=== PATIENT | female | born 1930 | race Caucasian/White ===

== ENCOUNTER 2016-12-13 18:24 | Inpatient (IN) | payer OTHER, MEDICARE ==
[~2016-12-13] VITALS: Ht 149.9 cm; Wt 49.0 kg
[~2016-12-13 18:24] MED LIST: CITALOPRAM HBR20 MG PO; LISINOPRIL20 M1 PO; PANTOPRAZOLE SO40 M1 PO; SIMVASTATIN40 M1 PO
--- NOTE | 2016-12-13 18:35 | NUR ---
PT TO ED C/O ABD PAIN AND LOW BACK PAIN SINCE YESTERDAY. C/O VOMITING YESTERDAY, DENIES DIARRHEA. DENIES S/S.
--- NOTE | 2016-12-13 18:46 | NUR ---
PT REPORTS HAVING A NORMAL BM TODAY, STATES VOMITTED TODAY A SMALL AMOUT. REPORTS HASNT BEEN EATING THE PAST 2 DAYS
--- NOTE | 2016-12-13 18:53 | NUR ---
XIMENA REKHA IN TO EVAL.
--- NOTE | 2016-12-13 18:58 | ED GI/GU/ABDOMINAL COMPLAINT ---
History of Present Illness General Chief Complaint: Abdominal Pain/Flank Pain Stated Complaint: ABDOMINAL PAIN,LOW BACK PAIN Source: patient, family Exam Limitations: dementia, poor historian Vital Signs & Intake/Output Vital Signs & Intake/Output Vital Signs Date Time Temp Pulse Resp B/P B/P Pulse O2 O2 Flow FiO2 Mean Ox Delivery Rate 12/131 98.2 69 20 160/70 95 Room Air 12/13 2305 73 20 193/83 97 Room Air 12/13 2305 90 20 220/94 96 Room Air 12/13 2304 90 20 220/94 12/13 2237 82 20 175/82 12/13 2226 84 20 175/82 96 Room Air 12/13 2211 88 20 214/92 12/13 2200 98.1 88 20 214/92 98 Room Air 12/13 2132 98.4 76 20 204/72 97 Room Air 12/13 1834 98.4 94 20 194/80 97 Room Air ED Intake and Output 12/14 0000 12/13 1200 Intake Total 1300 Output Total 200 Balance 1100 Intake, IV 1000 Intake, Other 300 Output, 200 Gastric Drainage Patient 110 lb Weight Weight Estimated Measurement Method Allergies Coded Allergies: No Known Allergies (12/13/16) Reconcile Medications Aspirin (Ecotrin*) 81 MG TABLET.DR 162 MG PO DAILY HEART/BLOOD (Reported) Cinnamon Bark (Cinnamon) 500 MG CAPSULE 1,000 MG PO DAILY SUPPLEMENT ( Reported) Citalopram Hydrobromide (Citalopram HBr) 20 MG TABLET 0.5 TAB PO DAILY ANXIETY (Reported) Donepezil HCl 10 MG TABLET 1 TAB PO DAILY MEMORY (Reported) Famotidine 40 MG TABLET 1 TAB PO AD GI (Reported) Ibandronate Sodium (Boniva) 150 MG TABLET 1 TAB PO Q30D OSTEOPOROSIS ( Reported) on the same date with a full glass of water at least 30 minutes before first food or drink of the day; remain in an upright posi Lisinopril 20 MG TABLET 1 TAB PO DAILY HTN (Reported) Multivitamin (Multi-Day Vitamins) 1 EACH TABLET 1 TAB PO DAILY SUPPLEMENT ( Reported) Pantoprazole Sodium 40 MG TABLET.DR 1 TAB PO DAILY GERD (Reported) Simvastatin (Simvastatin*) 40 MG TABLET 1 TAB PO QPM CHOL (Reported) Triage Note: PT TO ED C/O ABD PAIN AND LOW BACK PAIN SINCE YESTERDAY. C/O VOMITING YESTERDAY, DENIES DIARRHEA. DENIES S/S. Triage Nurses Notes Reviewed? yes ? N Is pt currently ? No Onset: Gradual Duration: day(s): Timing: recent history Location: left lower quadrant, periumbilical, right lower quadrant HPI: 86-year-old female with hx of HTN presents emergency department complaining of lower back pain bilaterally, abdominal pain, nausea, vomiting 3 or 4 days. Patient is poor historian due to possible baseline dementia, HPI partially obtained from . Unknown if patient had abdominal pain similar to her current pain in the past. She describes abdominal pain as lower abdomen aching intermittently. It is unknown if patient has had prior abdominal surgery. Per the patient's the patient does not chronically complain of back pain, states the patient was complaining of periumbilical abdominal pain yesterday. The patient vomited 2-3 times yesterday unknown of blood present, she vomiting once today. Last bowel movement was this morning and normal. The patient denies diarrhea, constipation, fevers, chills. (SYD DA SILVA PA-C) Past History Travel History Traveled to [place] past 21 day No Medical History Any Pertinent Medical History? see below for history Neurological: NONE EENT: EKUK Cardiovascular: hypertension, hyperlipidemia Respiratory: NONE Gastrointestinal: NONE Hepatic: NONE Renal: NONE Musculoskeletal: NONE Psychiatric: NONE Endocrine: NONE Surgical History Surgical History: hysterectomy Psychosocial History Who do you live with Spouse Services at Home None What is your primary language Ivorian Tobacco Use: Never used ETOH Use: denies use Illicit Drug Use: denies illicit drug use Family History Hx Contributory? No (SYD DA SILVA PA-C) Review of Systems Review of Systems Constitutional: Reports: no symptoms. EENTM: Reports: no symptoms. Respiratory: Reports: no symptoms. Cardiovascular: Reports: no symptoms. GI: Reports: see HPI. Genitourinary: Reports: no symptoms. Musculoskeletal: Reports: see HPI. Skin: Reports: no symptoms. Neurological/Psychological: Reports: no symptoms. Hematologic/Endocrine: Reports: no symptoms. Immunologic/Allergic: Reports: no symptoms. All Other Systems: Reviewed and Negative (SYD DA SILVA PA-C) Physical Exam Physical Exam General Appearance: well developed/nourished, no apparent distress, alert, awake Head: atraumatic, normal appearance Eyes: Bilateral: normal appearance, EOMI. Ears, Nose, Throat, Mouth: hearing grossly normal Neck: normal inspection, supple, full range of motion Respiratory: normal breath sounds, no respiratory distress, lungs clear Cardiovascular: regular rate/rhythm Gastrointestinal: normal bowel sounds, soft, tenderness RLQ and LLQ, no rebound, no gaurding, mild distention Back: normal inspection, normal range of motion, no CVA tenderness Extremities: normal range of motion Neurologic/Psych: awake, alert, oriented x 3, poor recent memory Skin: intact, normal color Core Measures ACS in differential dx? No Severe Sepsis Present: No Septic Shock Present: No (REKHA CARRILLO,SYD VILLALOBOS) Progress Differential Diagnosis: appendicitis, biliary colic, bowel obstruction, cholecystitis, diverticulitis, ischemic bowel, inflamm bowel dis, kidney stone, SBO, UTI/pyelo Plan of Care: Orders Procedure Date/time Status Nothing by Mouth 12/14 B Active CBC WITHOUT DIFFERENTIAL 12/14 06 Active BASIC METABOLIC PANEL 12/14 06 Active BASIC ELECTROLYTES PLUS BUN&CR 12/14 0600 Active Vital Signs 12/14 0045 Complete Teach/Educate 12/14 004 Active Pain Treatment and Response 12/14 44 Active Nutritional Intake, Monitor 12/14 44 Active Isolation 12/14 44 Active Intake & Output 12/14 44 Complete Patient Care Conference 12/14 004 Active Activity/Ambulation 12/14 0045 Complete Pathway - chart 12/14 2231 Active Admit to inpatient 12/13 223 Active Patient Data 12/13 220 Active Saline Lock 12/14 2131 Active ED Holding Orders 12/14 2131 Active Admit to inpatient 12/14 2131 Active Vital Signs 12/13 213 Complete Code Status 12/13 213 Active NGT 12/13 2124 Complete Intake & Output 12/13 1921 Active LIPASE 12/13 1855 Complete COMPREHENSIVE METABOLIC PANEL 12/13 1855 Complete CBC WITHOUT DIFFERENTIAL 12/13 185 Complete EKG 12/13 1825 Active TRC EVALUATION (GEN) 12/13 UNK Active VTE Mechanical Prophylaxis 12/13 UNK Active Vital Signs 12/13 UNK Active NGT 12/13 UNK Active Intake & Output 12/13 UNK Complete Activity/Ambulation 12/13 UNK Active Current Medications Sig/Amie Start time Last Medication Dose Stop Time Status Admin Atorvastatin Calcium 20 MG 1700 12/14 1700 AC (Lipitor) Aspirin 81 MG DAILY 12/14 1000 AC (Aspirin) Citalopram 10 MG DAILY 12/14 1000 AC Hydrobromide (Celexa) Donepezil HCl 10 MG DAILY 12/14 1000 AC (Aricept) Famotidine 40 MG DAILY 12/14 1000 AC (Pepcid) Lisinopril 20 MG DAILY 12/14 1000 AC (Prinivil) Multivitamins 1 TAB DAILY 12/14 1000 AC (Theragran Vitamins) Omeprazole 40 MG DAILY AC 12/14 0700 AC (Prilosec) Heparin Sodium 5,000 UNIT Q8 12/14 0600 AC (Porcine) Ondansetron HCl 4 MG Q6P PRN 12/13 2300 AC (Zofran) Acetaminophen 1,000 MG Q6P PRN 12/13 223 AC (Ofirmev) Dextrose/Sodium 1,000 ML .Q10H 12/13 2230 AC 12/13 Chloride 2243 (D5W-1/2 Normal Saline 1000ML) Morphine Sulfate 2 MG Q2P PRN 12/13 2229 AC (Morphine) Morphine Sulfate 4 MG Q2P PRN 12/13 2230 AC (Morphine) Promethazine HCl 12.5 MG Q6P PRN 12/13 223 AC (Phenergen) 12/20 2228 Laboratory Tests 12/13/168: Anion Gap 13, Estimated GFR > 60, BUN/Creatinine Ratio 37.5 H, Glucose 161 H, Calcium 10.4 H, Total Bilirubin 0.6, AST 33, ALT 38, Alkaline Phosphatase 73, Total Protein 6.9, Albumin 4.4, Globulin 2.5, Albumin/Globulin Ratio 1.8, Lipase 49, CBC w Diff MAN DIFF ORDERED, RBC 4.26, MCV 95.2, MCH 31.3 H, RDW 13.8, MPV 8.0, Gran % 89.2 H, Lymphocytes % 3.6 L, Monocytes % 6.8, Eosinophils % 0.4, Basophils % 0 L, Absolute Granulocytes 16.9 H, Absolute Lymphocytes 0.7 L, Absolute Monocytes 1.3 H, Absolute Eosinophils 0.1, Absolute Basophils 0, Platelet Estimate ADEQUATE, Normochromic RBCs VERIFIED, Poikilocytosis 1+, Elliptocytes 1+, PUBS MCHC 32.8 L 9:00 - spoke with Dr. Rodgers regarding patient's small bowel obstruction. He recommends nasogastric tube now and surgical PA evaluation of patient. 9:15 - surgical PA Black informed of patient and diagnosis, present to evaluate patient at bedside. 200 cc bile removed with NG tube Per Black Carney surgical PA patient will be admitted to surgical floor for monitoring of her SBO with possible surgery if no resolution of symptoms. Premature discharge would be medically unsafe. Patient with HTN in ED, given labetalol and enalipril IV. The patient reports no pain on re-exam, she is comfortable lying in bed. (REKHA CARRILLO,SYD VILLALOBOS) Diagnostic Imaging: Viewed by Me: CT Scan. Discussed w/RAD: CT Scan. Radiology Impression: PATIENT: EDWARD LARA PRESENT AGE: 86 PATIENT ACCOUNT NO: [id number] : 30 LOCATION: [facility] ([facility] ORDERING PHYSICIAN: SYD DA SILVA PA-C SERVICE DATE: 12/13/16 EXAM TYPE: CAT - CT ABD & PELVIS W IV CONTRAST EXAMINATION: CT ABDOMEN AND PELVIS with CONTRAST CLINICAL INFORMATION: Left lower quadrant, right lower quadrant abdominal pain. Nausea and vomiting. COMPARISON: None TECHNIQUE: Helical CT scan of abdomen and pelvis. IV contrast: 95 mL Optiray 320 Oral contrast: None Reconstruction: Coronal and sagittal reformatted images performed at CT scanner by the technologist. FINDINGS: LUNG BASES: The visualized lung bases are unremarkable. LIVER, GALLBLADDER, AND BILIARY TREE: The liver is normal in size, shape, and attenuation. No focal hepatic lesion or biliary ductal dilatation is present. The gallbladder is unremarkable with no evidence of radiopaque gallstones, gallbladder wall thickening, or obvious pericholecystic inflammatory changes. PANCREAS: No acute change of the pancreas. No mass. No pancreatic duct dilatation. SPLEEN: Spleen normal in size and contour. No focal lesion. ADRENAL GLANDS: Adrenal glands are normal in size. No focal mass. KIDNEYS AND URETERS: The kidneys are normal in size, shape, and attenuation. No hydronephrosis, hydroureter, or calculi seen. No perinephric stranding. BLADDER: Unremarkable. GASTROINTESTINAL TRACT: High-grade small bowel obstruction. Transition point in the low central pelvis. The distal terminal ileum is decompressed. The large bowel is decompressed. Moderate amount of stool in the colon. No bowel wall thickening or edema. There is however small volume of fluid in the mesentery. No free air. Small hiatal hernia. The appendix is not seen. MESENTERY: Small volume of free fluid in the mesentery related to the small bowel obstruction. No free air or abscess. ABDOMINAL WALL: No significant hernia is appreciated. LYMPH NODES: Normal. VASCULAR: Vascular wall calcifications of aorta and iliac vessels without aneurysm. PELVIC VISCERA: Uterus is absent. No adnexal abnormality. OSSEOUS STRUCTURES: Degenerative spondylosis with multilevel disc height narrowing. Vacuum disc phenomenon L2-L3, L4-L5. Grade 1 anterolisthesis of L4 on L5 due to facet joint arthrosis. No spondylolysis. Degenerative joint narrowing of joints. There is a sclerotic bone island in the right sacral ala. IMPRESSION: 1. High-grade small bowel obstruction with transition point low in pelvis. 2. Status post hysterectomy. DICTATED BY: ELIZABETH BAKER MD DATE/TIME DICTATED:2027 MARINE DIVER:LATOYA DATE/TIME TRANSCRIBED:12/13/162027 CONFIDENTIAL, DO NOT COPY WITHOUT APPROPRIATE AUTHORIZATION. <Electronically signed in Other Vendor System> SIGNED BY: ELIZABETH BAKER MD 12/13/162043 Initial ED EKG: sinus rhythm at 70bpm, normal axis, no ST segment elevation or depression Prior EKG: unchanged (03/27/09) (REKHA CARRILLO,SYD VILLALOBOS) Departure Departure Time of Disposition: 2128 Disposition: STILL A PATIENT Condition: Stable Clinical Impression Primary Impression: Small bowel obstruction Secondary Impressions: Leukocytosis, Nausea & vomiting Referrals: KILPATRICK NARGIS TELLO (PCP/Family) Departure Forms: Customer Survey General Discharge Information Admission Note Spoke With: TAMIR TELLO,ROBERT Tiwari Documentation of Exam: Documentation of any treatments & extenuating circumstances including Concerns Regarding Discharge (functional status, medication knowledge or non-compliance, living conditions, etc.) that warrant an admission rather than observation: [ high grade small bowel obstruction, requiring IVF replacement, pain management, surgical consult/evaluation, repeat labs, premature discharge would be medically unsafe] (SYD DA SILVA PA-C) PA/KETTLE COOK Co-Sign Statement Statement: ED Attending supervision documentation- [] I saw and evaluated the patient. I have also reviewed all the pertinent lab results and diagnostic results. I agree with the findings and the plan of care as documented in the PA's/KETTLE COOK's documentation. [x] I have reviewed the ED Record and agree with the PA's/KETTLE COOK's documentation. [] Additions or exceptions (if any) to the PAs/KETTLE COOK's note and plan are summarized below: [] (MARIANO TELLO,BOB Esqueda)
[2016-12-13] MEDS ORDERED: FAMOTIDINE40 M1 PO (19:15)
[2016-12-13] MEDS ORDERED: BONIVA150 M1 PO (19:16)
[2016-12-13] MEDS ORDERED: DONEPEZIL HCL10 M1 PO (19:16)
[2016-12-13] MEDS ORDERED: ASPIRIN EC81 M1 PO (19:17)
[2016-12-13] MEDS ORDERED: CINNAMON500 M1 PO (19:17)
[2016-12-13] MEDS ORDERED: MULTI-DAY VITA1 EACH PO (19:17)
--- NOTE | 2016-12-13 19:17 | NUR ---
BLOOD DRAWN AND SENT TO LAB (BLUE,SST,PINK,LAV,MEI)
[2016-12-13 19:38] LABS: ABSOLUTE BASOPHIL COUNT 0 /CUMM (0.0-0.2); ABSOLUTE EOSINOPHIL COUNT 0.1 /CUMM (0.0-0.7); ABSOLUTE GRANULOCYTE CT 16.9 /CUMM (1.4-6.5); ABSOLUTE LYMPH COUNT 0.7 /CUMM (1.2-3.4); ABSOLUTE MONOCYTE COUNT 1.3 /CUMM (0.10-0.60); BASOPHIL % 0 % (0.0-2.0); EOSINOPHIL % 0.4 % (0-5); GRANULOCYTE % 89.2 % (42.2-75.2); HEMATOCRIT 40.6 % (37-47); MEAN CORPUSCULAR HGB 31.3 PG (27.0-31.0); MEAN CORPUSCULAR HGB CONC 32.8 G/DL (33.0-37.0); MEAN CORPUSCULAR VOLUME 95.2 FL (81.0-99.0); PLATELET COUNT 337 /CUMM (130-400); RBC DISTRIBUTION WIDTH 13.8 % (11.5-14.5); RED BLOOD CELL CT 4.26 /CUMM (4.20-5.40)
--- NOTE | 2016-12-13 20:00 | NUR ---
PT TO CT
--- NOTE | 2016-12-13 20:20 | NUR ---
PT RETURNED FROM CT
--- NOTE | 2016-12-13 20:44 | CT SCAN REPORT ---
EXAMINATION: CT ABDOMEN AND PELVIS with CONTRAST CLINICAL INFORMATION: Left lower quadrant, right lower quadrant abdominal pain. Nausea and vomiting. COMPARISON: None TECHNIQUE: Helical CT scan of abdomen and pelvis. IV contrast: 95 mL Optiray 320 Oral contrast: None Reconstruction: Coronal and sagittal reformatted images performed at CT scanner by the technologist. FINDINGS: LUNG BASES: The visualized lung bases are unremarkable. LIVER, GALLBLADDER, AND BILIARY TREE: The liver is normal in size, shape, and attenuation. No focal hepatic lesion or biliary ductal dilatation is present. The gallbladder is unremarkable with no evidence of radiopaque gallstones, gallbladder wall thickening, or obvious pericholecystic inflammatory changes. PANCREAS: No acute change of the pancreas. No mass. No pancreatic duct dilatation. SPLEEN: Spleen normal in size and contour. No focal lesion. ADRENAL GLANDS: Adrenal glands are normal in size. No focal mass. KIDNEYS AND URETERS: The kidneys are normal in size, shape, and attenuation. No hydronephrosis, hydroureter, or calculi seen. No perinephric stranding. BLADDER: Unremarkable. GASTROINTESTINAL TRACT: High-grade small bowel obstruction. Transition point in the low central pelvis. The distal terminal ileum is decompressed. The large bowel is decompressed. Moderate amount of stool in the colon. No bowel wall thickening or edema. There is however small volume of fluid in the mesentery. No free air. Small hiatal hernia. The appendix is not seen. MESENTERY: Small volume of free fluid in the mesentery related to the small bowel obstruction. No free air or abscess. ABDOMINAL WALL: No significant hernia is appreciated. LYMPH NODES: Normal. VASCULAR: Vascular wall calcifications of aorta and iliac vessels without aneurysm. PELVIC VISCERA: Uterus is absent. No adnexal abnormality. OSSEOUS STRUCTURES: Degenerative spondylosis with multilevel disc height narrowing. Vacuum disc phenomenon L2-L3, L4-L5. Grade 1 anterolisthesis of L4 on L5 due to facet joint arthrosis. No spondylolysis. Degenerative joint narrowing of joints. There is a sclerotic bone island in the right sacral ala. IMPRESSION: 1. High-grade small bowel obstruction with transition point low in pelvis. 2. Status post hysterectomy.
--- NOTE | 2016-12-13 21:15 | NUR ---
NG TUBE PALCED INTO LEFT NARE TAPED AT 54.
--- NOTE | 2016-12-13 21:20 | NUR ---
200 CC BILE REMOVED WITH NGT PLACEMENT
--- NOTE | 2016-12-13 22:10 | NUR ---
PT GIVEN 10MG LABETALOL IV FOR INCREASED BP
--- NOTE | 2016-12-13 22:46 | History & Physical ---
GABRIELLE MORELOS PA-C 12/13/16 2233: General Information and HPI MD Statement: I have seen and personally examined EDWARD LARA and documented this H&P. The patient is a 86 year old F who presented with a patient stated chief complaint of [abdominal pain, nausea and vomiting]. Source of Information: patient, family Exam Limitations: dementia History of Present Illness: 86-year-old female with mild dementia, her is aiding in history, presents to the emergency department this evening with complaints of abdominal pain nausea and vomiting. Her abdominal pain started 2 days ago, yesterday she had mildly worsening abdominal pain which is diffuse and nonradiating, she had several episodes, approximately 4 per the , of vomiting. She then continued with abdominal pain today which is now radiating into the back, there is no vomiting today. Patient states that she had a small bowel movement earlier this morning. She has had no appetite. She denies any fever or flulike illness. She has a history of dementia, she has a history of abdominal surgery consistent with section many years ago, she denies any abdominal surgery or previous small bowel obstructions. She is not nauseous at this time. She does not recall passing any gas since her last bowel movement. Allergies/Medications Allergies: Coded Allergies: No Known Allergies (12/13/16) Home Med list Aspirin (Ecotrin*) 81 MG TABLET.DR 162 MG PO DAILY HEART/BLOOD (Reported) Cinnamon Bark (Cinnamon) 500 MG CAPSULE 1,000 MG PO DAILY SUPPLEMENT ( Reported) Citalopram Hydrobromide (Citalopram HBr) 20 MG TABLET 0.5 TAB PO DAILY ANXIETY (Reported) Donepezil HCl 10 MG TABLET 1 TAB PO DAILY MEMORY (Reported) Famotidine 40 MG TABLET 1 TAB PO AD GI (Reported) Ibandronate Sodium (Boniva) 150 MG TABLET 1 TAB PO Q30D OSTEOPOROSIS ( Reported) on the same date with a full glass of water at least 30 minutes before first food or drink of the day; remain in an upright posi Lisinopril 20 MG TABLET 1 TAB PO DAILY HTN (Reported) Multivitamin (Multi-Day Vitamins) 1 EACH TABLET 1 TAB PO DAILY SUPPLEMENT ( Reported) Pantoprazole Sodium 40 MG TABLET.DR 1 TAB PO DAILY GERD (Reported) Simvastatin (Simvastatin*) 40 MG TABLET 1 TAB PO QPM CHOL (Reported) Past History Travel History Traveled to [place] past 21 day No Medical History Neurological: dementia EENT: [place] Cardiovascular: hypertension, hyperlipidemia Respiratory: NONE Gastrointestinal: GERD Hepatic: NONE Renal: NONE Musculoskeletal: osteoporosis Psychiatric: NONE Endocrine: NONE Surgical History Surgical History: hysterectomy Past Family/Social History Family History Relations & Conditions if any Relation not specified for: *No pertinent family history Psychosocial History Services at Home: None ETOH Use: denies use Illicit Drug Use: denies illicit drug use Review of Systems Review of Systems Constitutional: Reports: see HPI. Denies: chills, diaphoresis, fever, malaise. EENTM: Reports: no symptoms. Cardiovascular: Reports: no symptoms. Respiratory: Reports: no symptoms. GI: Reports: see HPI. Genitourinary: Reports: no symptoms. Musculoskeletal: Reports: no symptoms. Skin: Reports: no symptoms. Neurological/Psychological: Reports: no symptoms. Hematologic/Endocrine: Reports: no symptoms. Immunologic/Allergic: Reports: no symptoms. Exam & Diagnostic Data Last 24 Hrs of Vital Signs/I&O Vital Signs Date Time Temp Pulse Resp B/P B/P Pulse O2 O2 Flow FiO2 Mean Ox Delivery Rate 12/13 2226 84 20 175/82 96 Room Air 12/13 2211 88 20 214/92 12/13 2200 98.1 88 20 214/92 98 Room Air 12/13 2132 98.4 76 20 204/72 97 Room Air 12/13 1834 98.4 94 20 194/80 97 Room Air Physical Exam General Appearance Alert, Oriented X3, Cooperative, No Acute Distress Skin No Rashes Skin Temp/Moisture Exam: Warm/Dry Sepsis Skin Exam (color): Normal for Ethnicity HEENT Atraumatic, PERRLA, EOMI, Mucous Membr. moist/pink Neck Supple, No JVD, No thryomegaly Cardiovascular Regular Rate, Normal S1, Normal S2 Lungs Clear to Auscultation, Normal Air Movement Abdomen SOFTLY DISTENDED, MODERATE DISTENTION. HYPERACTIVE BOWEL SOUNDS. NON TENDER. TRANSVERSE LOWER PELVIC SURGICAL SCAR Neurological Normal Speech, Strength at 5/5 X4 Ext, Normal Tone, Sensation Intact, Cranial Nerves 3-12 NL Extremities No Clubbing, No Cyanosis, No Edema, Normal Pulses, No Tenderness/ Swelling Last 24 Hrs of Labs/Get: Laboratory Tests 12/13/16 1908: Anion Gap 13, Estimated GFR > 60, BUN/Creatinine Ratio 37.5 H, Glucose 161 H, Calcium 10.4 H, Total Bilirubin 0.6, AST 33, ALT 38, Alkaline Phosphatase 73, Total Protein 6.9, Albumin 4.4, Globulin 2.5, Albumin/Globulin Ratio 1.8, Lipase 49, CBC w Diff MAN DIFF ORDERED, RBC 4.26, MCV 95.2, MCH 31.3 H, RDW 13.8, MPV 8.0, Gran % 89.2 H, Lymphocytes % 3.6 L, Monocytes % 6.8, Eosinophils % 0.4, Basophils % 0 L, Absolute Granulocytes 16.9 H, Absolute Lymphocytes 0.7 L, Absolute Monocytes 1.3 H, Absolute Eosinophils 0.1, Absolute Basophils 0, Platelet Estimate ADEQUATE, Normochromic RBCs VERIFIED, Poikilocytosis 1+, Elliptocytes 1+, PUBS MCHC 32.8 L Diagnostic Data EKG Results 70 BPM, NSR, NO ST/T WAVE CHANGES Other Results PATIENT: EDWARD LARA PRESENT AGE: 86 PATIENT ACCOUNT NO: [id number] : 30 LOCATION: [facility] ORDERING PHYSICIAN: SYD DA SILVA PA-C SERVICE DATE: 12/13/16 EXAM TYPE: CAT - CT ABD & PELVIS W IV CONTRAST EXAMINATION: CT ABDOMEN AND PELVIS with CONTRAST CLINICAL INFORMATION: Left lower quadrant, right lower quadrant abdominal pain. Nausea and vomiting. COMPARISON: None TECHNIQUE: Helical CT scan of abdomen and pelvis. IV contrast: 95 mL Optiray 320 Oral contrast: None Reconstruction: Coronal and sagittal reformatted images performed at CT scanner by the technologist. FINDINGS: LUNG BASES: The visualized lung bases are unremarkable. LIVER, GALLBLADDER, AND BILIARY TREE: The liver is normal in size, shape, and attenuation. No focal hepatic lesion or biliary ductal dilatation is present. The gallbladder is unremarkable with no evidence of radiopaque gallstones, gallbladder wall thickening, or obvious pericholecystic inflammatory changes. PANCREAS: No acute change of the pancreas. No mass. No pancreatic duct dilatation. SPLEEN: Spleen normal in size and contour. No focal lesion. ADRENAL GLANDS: Adrenal glands are normal in size. No focal mass. KIDNEYS AND URETERS: The kidneys are normal in size, shape, and attenuation. No hydronephrosis, hydroureter, or calculi seen. No perinephric stranding. BLADDER: Unremarkable. GASTROINTESTINAL TRACT: High-grade small bowel obstruction. Transition point in the low central pelvis. The distal terminal ileum is decompressed. The large bowel is decompressed. Moderate amount of stool in the colon. No bowel wall thickening or edema. There is however small volume of fluid in the mesentery. No free air. Small hiatal hernia. The appendix is not seen. MESENTERY: Small volume of free fluid in the mesentery related to the small bowel obstruction. No free air or abscess. ABDOMINAL WALL: No significant hernia is appreciated. LYMPH NODES: Normal. VASCULAR: Vascular wall calcifications of aorta and iliac vessels without aneurysm. PELVIC VISCERA: Uterus is absent. No adnexal abnormality. OSSEOUS STRUCTURES: Degenerative spondylosis with multilevel disc height narrowing. Vacuum disc phenomenon L2-L3, L4-L5. Grade 1 anterolisthesis of L4 on L5 due to facet joint arthrosis. No spondylolysis. Degenerative joint narrowing of joints. There is a sclerotic bone island in the right sacral ala. IMPRESSION: 1. High-grade small bowel obstruction with transition point low in pelvis. 2. Status post hysterectomy. DICTATED BY: ELIZABETH BAKER MD DATE/TIME DICTATED:12/13/162027 Assessment/Plan Assessment: 86-year-old female with abdominal pain distention nausea vomiting and decreased flatus with a CT scan that shows high-grade small bowel obstruction, leukocytosis and 19,000, elevated BUN to creatinine ratio consistent with dehydration. Patient requires admission to the hospital for small bowel obstruction, NG tube was placed in the ER, approximately 350 mL of bilious output initially. Nothing by mouth, IV fluids, given a liter bolus the ER, we will continue with maintenance fluid, IV antiemetics when necessary, IV pain medication when necessary, heparin subcutaneous for DVT prophylaxis, follow a.m. labs, monitor electrolytes, repeat CBC due to elevated white blood cell count, likely reactive /stress-response. We will monitor her over the next 2-3 days in hopes that her small bowel obstruction will resolve with the NG tube and she will have return of normal bowel function. She may need operative exploration if she does not improve. Discussed with Dr. Garnett, admitting physician. As Ranked By This Provider Problem List: 1. Small bowel obstruction 2. Nausea & vomiting 3. Leukocytosis 4. Dehydration Core Measures/Miscellaneous Acute Coronary Syndrome ACS Diagnosis: No Cerebrovascular Accident CVA/TIA Diagnosis: No Congestive Heart Failure CHF Diagnosis: No VTE (View Protocol) VTE Risk Factors: Age > 40 No Mech VTE prophylaxis d/t: No contraindications No VTE Pharm Prophylaxis d/t: No contraindications VTE Diagnosis: No VTE Type: NONE VTE Confirmed by (Test): NONE Sepsis (View Protocol) Severe Sepsis Present: No Septic Shock Septic Shock Present: No Miscellaneous Documentation Attending Case Discussed With: ROBERT GARNETT MD Primary Care Physician: NARGIS KILPATRICK MD Patient sees these Specialists none Level of Patient Care: General Surgical ROBERT GARNETT MD 12/14/16 1326: Attending MD Review Statement Attending Statement Attending MD Statement: examined this patient, discuss w/resident/PA/CLASSIFIER OPERATOR, reviewed images Attending Assessment/Plan: as per PA note. 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 npo/ngt, hydration, serial exam.
--- NOTE | 2016-12-13 22:50 | Admission Core Measures ---
Admission Lab Results I reviewed the following labs: Laboratory Tests 12/14 1907 Chemistry Sodium (137 - 145 mmol/L) 138 Potassium (3.5 - 5.1 mmol/L) 4.4 Chloride (98 - 107 mmol/L) 101 Carbon Dioxide (22 - 30 mmol/L) 24 Anion Gap (5 - 16) 13 BUN (7 - 17 mg/dL) 30 H Creatinine (0.5 - 1.0 mg/dL) 0.8 Estimated GFR (>60 ml/min) > 60 BUN/Creatinine Ratio (7 - 25 %) 37.5 H Glucose (65 - 99 mg/dL) 161 H Calcium (8.4 - 10.2 mg/dL) 10.4 H Total Bilirubin (0.2 - 1.3 mg/dL) 0.6 AST (14 - 36 U/L) 33 ALT (9 - 52 U/L) 38 Alkaline Phosphatase (<127 U/L) 73 Total Protein (6.3 - 8.2 g/dL) 6.9 Albumin (3.5 - 5.0 g/dL) 4.4 Globulin (1.9 - 4.2 gm/dL) 2.5 Albumin/Globulin Ratio (1.1 - 2.2 %) 1.8 Lipase (23 - 300 U/L) 49 Hematology CBC w Diff MAN DIFF ORDERED WBC (4.8 - 10.8 /CUMM) 19.0 H RBC (4.20 - 5.40 /CUMM) 4.26 Hgb (12.0 - 16.0 G/DL) 13.3 Hct (37 - 47 %) 40.6 MCV (81.0 - 99.0 FL) 95.2 MCH (27.0 - 31.0 PG) 31.3 H RDW (11.5 - 14.5 %) 13.8 Plt Count (130 - 400 /CUMM) 337 MPV (7.4 - 10.4 FL) 8.0 Gran % (42.2 - 75.2 %) 89.2 H Lymphocytes % (20.5 - 51.1 %) 3.6 L Monocytes % (1.7 - 9.3 %) 6.8 Eosinophils % (0 - 5 %) 0.4 Basophils % (0.0 - 2.0 %) 0 L Absolute Granulocytes (1.4 - 6.5 /CUMM) 16.9 H Absolute Lymphocytes (1.2 - 3.4 /CUMM) 0.7 L Absolute Monocytes (0.10 - 0.60 /CUMM) 1.3 H Absolute Eosinophils (0.0 - 0.7 /CUMM) 0.1 Absolute Basophils (0.0 - 0.2 /CUMM) 0 Platelet Estimate (ADEQUATE) ADEQUATE Normochromic RBCs VERIFIED Poikilocytosis 1+ Elliptocytes 1+ PUBS MCHC (33.0 - 37.0 G/DL) 32.8 L Admission Meds I reviewed the following Meds: Current Medications Sig/Amie Start time Last Medication Dose Stop Time Status Admin Acetaminophen 1,000 MG Q6P PRN 12/13 223 UNVr (Ofirmev) Aspirin 81 MG DAILY 12/14 1000 UNVr (Aspirin) Atorvastatin Calcium 20 MG 1700 12/14 170 UNVr (Lipitor) Citalopram 10 MG DAILY 12/14 1000 UNVr Hydrobromide (Celexa) Dextrose/Sodium 1,000 ML .Q10H 12/13 2229 UNVr 12/13 Chloride 2243 (D5W-1/2 Normal Saline 1000ML) Donepezil HCl 10 MG DAILY 12/14 1000 UNVr (Aricept) Enalaprilat 1.25 MG ONCE ONE 12/13 2229 UNVr 12/13 (Vasotec I.V.. 2ML 12/13 Inj.(2.5MG/2ML)) Famotidine 40 MG DAILY 12/14 1000 UNVr (Pepcid) Heparin Sodium 5,000 UNIT Q8 12/14 0600 UNVr (Porcine) Lisinopril 20 MG DAILY 12/14 1000 UNVr (Prinivil) Morphine Sulfate 2 MG Q2P PRN 12/13 2229 UNVr (Morphine) Morphine Sulfate 4 MG Q2P PRN 12/13 223 UNVr (Morphine) Multivitamins 1 TAB DAILY 12/14 1000 UNVr (Theragran Vitamins) Omeprazole 40 MG DAILY AC 12/14 699 UNVr (Prilosec) Ondansetron HCl 4 MG Q6P PRN 12/13 2229 UNVr (Zofran) Promethazine HCl 12.5 MG Q6P PRN 12/13 2229 UNVr (Phenergen) 12/20 2228 Acute Coronary Syndrome Inclusion Criteria ACS Diagnosis No Inpatient Core Measures LDL Reminder: If No, please order W/I first 24hr of stay Congestive Heart Failure Inclusion Criteria CHF Diagnosis No Cerebrovascular accident Inclusion Criteria CVA/TIA Diagnosis No Inpatient Core Measures Bedside Swallow Eval Reminder: If BSE failed, place ST order Antithrombotic Reminder: Order Antithrombotic Medication by end of day 2 Antithrombotic Reminder: Document Reason Antithrombotic Not ordered by end of day 2 AFIB/Flutter Reminder: If Present, add to problem list AFIB/Flutter Reminder: Order Anticoag Medication for pts with AFIB/Flutter Atherosclerosis Reminder: If Present, add to problem list LDL Reminder: If No, please order W/I first 24hr of stay PT Order Reminder: If No, please order Venous thromboembolism Inpatient Core Measures VTE Risk Factors: Age > 40 [facility]/t No contraindications No VTE Pharm Prophylaxis d/t No contraindications Inclusion Criteria - Per Current guidelines, there needs to be overlap - treatment for the first 5 days of Warfarin therapy. - Parenteral Anticoagulation (IV or SC) needs to be - given along with Warfarin therapy. VTE Diagnosis No VTE Type NONE VTE Confirmed by (Test) NONE Problem List As ranked by this Provider includes Assessment & Plan 1. Small bowel obstruction 2. Nausea & vomiting 3. Leukocytosis 4. Dehydration HOME MEDS Home Med List Aspirin (Ecotrin*) 81 MG TABLET.DR 162 MG PO DAILY HEART/BLOOD (Reported) Cinnamon Bark (Cinnamon) 500 MG CAPSULE 1,000 MG PO DAILY SUPPLEMENT ( Reported) Citalopram Hydrobromide (Citalopram HBr) 20 MG TABLET 0.5 TAB PO DAILY ANXIETY (Reported) Donepezil HCl 10 MG TABLET 1 TAB PO DAILY MEMORY (Reported) Famotidine 40 MG TABLET 1 TAB PO AD GI (Reported) Ibandronate Sodium (Boniva) 150 MG TABLET 1 TAB PO Q30D OSTEOPOROSIS ( Reported) Lisinopril 20 MG TABLET 1 TAB PO DAILY HTN (Reported) Multivitamin (Multi-Day Vitamins) 1 EACH TABLET 1 TAB PO DAILY SUPPLEMENT ( Reported) Pantoprazole Sodium 40 MG TABLET.DR 1 TAB PO DAILY GERD (Reported) Simvastatin (Simvastatin*) 40 MG TABLET 1 TAB PO QPM CHOL (Reported)
--- NOTE | 2016-12-13 22:53 | NUR ---
PT ASSIGNED TO 221-1
--- NOTE | 2016-12-13 23:15 | NUR ---
REPORT CALLED TO FLOOR RN.
[2016-12-13 23:41] VITALS: BP 160/70
[2016-12-14] VITALS (8 sets, daily range): BP systolic 130–180; BP diastolic 60–80
--- NOTE | 2016-12-14 | NUR ---
PT A&Ox3, AMBULATED TO BATHROOM WITH SUPERVISION, VSS, DENIES NAUSEA & PAIN. Hx DEMENTIA, APPEARS FORGETFUL, BED ALARM ON, CALL CHACON IN REACH. ORIENTED TO FLOOR.
[2016-12-14 07:51] LABS: ABSOLUTE BASOPHIL COUNT 0 /CUMM (0.0-0.2); ABSOLUTE EOSINOPHIL COUNT 0 /CUMM (0.0-0.7); ABSOLUTE GRANULOCYTE CT 12.5 /CUMM (1.4-6.5); ABSOLUTE MONOCYTE COUNT 1.6 /CUMM (0.10-0.60); BASOPHIL % 0 % (0.0-2.0); EOSINOPHIL % 0 % (0-5); GRANULOCYTE % 82.4 % (42.2-75.2); HEMATOCRIT 38.4 % (37-47); MEAN CORPUSCULAR HGB 31.5 PG (27.0-31.0); MEAN CORPUSCULAR HGB CONC 32.9 G/DL (33.0-37.0); MEAN CORPUSCULAR VOLUME 95.6 FL (81.0-99.0); MEAN PLATELET VOLUME 8.3 FL (7.4-10.4); PLATELET COUNT 310 /CUMM (130-400); RBC DISTRIBUTION WIDTH 13.9 % (11.5-14.5); RED BLOOD CELL CT 4.01 /CUMM (4.20-5.40); WHITE BLOOD CELL COUNT 15.1 /CUMM (4.8-10.8)
--- NOTE | 2016-12-14 09:20 | PN- General Surgery ---
See Addendum Subjective Subjective: No complaints. Some abdominal discomfort. No flatus or bm per patient. Objective Vital Signs and I&Os Vital Signs Date Time Temp Pulse Resp B/P B/P Pulse O2 O2 Flow FiO2 Mean Ox Delivery Rate 12/14 0734 98.5 68 20 152/70 98 Room Air 12/14 0336 98.3 72 18 140/60 94 Room Air 12/13 2341 98.2 69 20 160/70 95 Room Air 12/13 2305 73 20 193/83 97 Room Air 12/13 2305 90 20 220/94 96 Room Air 12/13 2304 90 20 220/94 12/13 2237 82 20 175/82 12/13 2226 84 20 175/82 96 Room Air 12/13 2211 88 20 214/92 12/13 2200 98.1 88 20 214/92 98 Room Air 12/13 2132 98.4 76 20 204/72 97 Room Air 12/13 1834 98.4 94 20 194/80 97 Room Air Intake & Output 12/14 1600 12/14 0800 12/14 0000 12/13 1600 12/13 0800 12/13 0000 Intake Total 800 1300 Output Total 600 200 Balance 200 1100 Intake, IV 800 1000 Intake, Other 300 Output, 600 200 Gastric Drainage Patient 108 lb 110 lb Weight Weight Estimated Measurement Method Physical Exam: General - alert. comfortable. no acute distress. Lungs - clear bilaterally. no w/r/r. Cardiac - s1s2. reg. Abdomen - softly distended. some right lower abdominal tenderness. ng tube with 700 mls of brown colored drainage. Extremities - warm bilaterally. no c/c/e. calves soft and nontender b/l. Current Medications: Current Medications Sig/Amie Start time Last Medication Dose Route Stop Time Status Admin Acetaminophen 1,000 MG Q6P PRN 12/13 2230 AC IV Aspirin 81 MG DAILY 12/14 1000 DC PO Aspirin 81 MG DAILY 12/14 1000 AC PO Atorvastatin Calcium 20 MG 1700 12/14 1700 DC PO Atorvastatin Calcium 20 MG 1700 12/14 1700 AC PO Citalopram 10 MG DAILY 12/14 1000 DC Hydrobromide PO Citalopram 10 MG DAILY 12/14 1000 AC Hydrobromide PO Dextrose/Sodium 1,000 ML .Q10H 12/13 2230 AC 12/14 Chloride IV 0805 Donepezil HCl 10 MG DAILY 12/14 1000 DC PO Donepezil HCl 10 MG DAILY 12/14 1000 AC PO Enalaprilat 0 .STK-MED ONE 12/13 2304 DC IV Enalaprilat 1.25 MG ONCE ONE 12/13 2300 DC 12/13 IV 12/13 2300 230 Enalaprilat 0 .STK-MED ONE 12/13 2236 DC IV Enalaprilat 1.25 MG ONCE ONE 12/13 223 DC 12/13 IV 12/13 2230 223 Famotidine 40 MG DAILY 12/14 1000 DC PO Famotidine 40 MG DAILY 12/14 1000 AC PO Heparin Sodium 5,000 UNIT Q8 12/14 0600 AC 12/14 (Porcine) SC 0520 Labetalol HCl 10 MG ONCE ONE 12/13 2214 DC 12/13 IV 12/13 Labetalol HCl 0 .STK-MED ONE 12/13 2214 DC IV Lisinopril 20 MG DAILY 12/14 1000 DC PO Lisinopril 20 MG DAILY 12/14 1000 AC PO Morphine Sulfate 2 MG Q2P PRN 12/13 2230 AC IV Morphine Sulfate 4 MG Q2P PRN 12/13 2230 AC IV Multivitamins 1 TAB DAILY 12/14 1000 DC PO Multivitamins 1 TAB DAILY 12/14 1000 AC PO Omeprazole 40 MG DAILY AC 12/14 0700 DC PO Omeprazole 40 MG DAILY AC 12/14 0700 AC 12/14 PO 0559 Ondansetron HCl 4 MG Q6P PRN 12/13 2300 AC IV Ondansetron HCl 4 MG Q6P PRN 12/13 2229 DC IV Promethazine HCl 12.5 MG Q6P PRN 12/13 2230 AC IV 12/20 2229 Sodium Chloride 1,000 ML BOLUS ONE 12/13 2129 DC 12/13 IV 12/13 2228 2153 Results Last 48 Hours of Labs: Laboratory Tests 12/14 12/13 0615 1908 Chemistry Sodium (137 - 145 mmol/L) 136 L 138 Potassium (3.5 - 5.1 mmol/L) 4.1 4.4 Chloride (98 - 107 mmol/L) 103 101 Carbon Dioxide (22 - 30 mmol/L) 23 24 Anion Gap (5 - 16) 10 13 BUN (7 - 17 mg/dL) 26 H 30 H Creatinine (0.5 - 1.0 mg/dL) 0.7 0.8 Estimated GFR (>60 ml/min) > 60 > 60 BUN/Creatinine Ratio (7 - 25 %) 37.1 H 37.5 H Glucose (65 - 99 mg/dL) 142 H 161 H Calcium (8.4 - 10.2 mg/dL) 9.2 10.4 H Total Bilirubin (0.2 - 1.3 mg/dL) 0.6 AST (14 - 36 U/L) 33 ALT (9 - 52 U/L) 38 Alkaline Phosphatase (<127 U/L) 73 Total Protein (6.3 - 8.2 g/dL) 6.9 Albumin (3.5 - 5.0 g/dL) 4.4 Globulin (1.9 - 4.2 gm/dL) 2.5 Albumin/Globulin Ratio (1.1 - 2.2 %) 1.8 Lipase (23 - 300 U/L) 49 Hematology CBC w Diff NO MAN DIFF REQ MAN DIFF ORDERED WBC (4.8 - 10.8 /CUMM) 15.1 H 19.0 H RBC (4.20 - 5.40 /CUMM) 4.01 L 4.26 Hgb (12.0 - 16.0 G/DL) 12.6 13.3 Hct (37 - 47 %) 38.4 40.6 MCV (81.0 - 99.0 FL) 95.6 95.2 MCH (27.0 - 31.0 PG) 31.5 H 31.3 H RDW (11.5 - 14.5 %) 13.9 13.8 Plt Count (130 - 400 /CUMM) 310 337 MPV (7.4 - 10.4 FL) 8.3 8.0 Gran % (42.2 - 75.2 %) 82.4 H 89.2 H Lymphocytes % (20.5 - 51.1 %) 6.7 L 3.6 L Monocytes % (1.7 - 9.3 %) 10.9 H 6.8 Eosinophils % (0 - 5 %) 0 0.4 Basophils % (0.0 - 2.0 %) 0 L 0 L Absolute Granulocytes (1.4 - 6.5 /CUMM) 12.5 H 16.9 H Absolute Lymphocytes (1.2 - 3.4 /CUMM) 1.0 L 0.7 L Absolute Monocytes (0.10 - 0.60 /CUMM) 1.6 H 1.3 H Absolute Eosinophils (0.0 - 0.7 /CUMM) 0 0.1 Absolute Basophils (0.0 - 0.2 /CUMM) 0 0 Platelet Estimate (ADEQUATE) ADEQUATE Normochromic RBCs VERIFIED Poikilocytosis 1+ Elliptocytes 1+ PUBS MCHC (33.0 - 37.0 G/DL) 32.9 L 32.8 L Assessment/Plan Assessment/Plan This 86 year old female with hx htn, hld, gerd, dementia, hx hysterectomy, here with sbo currently npo / ivf / ngt not requiring pain medication pepcid iv bid - gi ppx hep sc - dvt ppx f/u labs and xray oob/ambulation with assistance serial exams will d/w Core Measures/Miscellaneous Venous Thromboembolism VTE Risk Factors: Age > 40 VTE Contraindications: No Contraindications VTE Diagnosis: No VTE Type: NONE VTE Confirmed by (Test): NONE Beta Kim Is Beta Kim a Home Med? No Antibiotics Is Patient on Antibiotics? No
--- NOTE | 2016-12-14 09:38 | RADIOLOGY REPORT ---
EXAMINATION: XR ABDOMEN MULTIPLE VIEWS CLINICAL INDICATION: Follow-up small bowel obstruction COMPARISON: Previous CT from yesterday TECHNIQUE: 2 views of the abdomen. FINDINGS: There is a new nasogastric tube that projects over the stomach. There are still distended fluid-filled loops of small bowel with multiple air-fluid levels and paucity of bowel gas in the large bowel. This is similar to yesterday's exam. There is no evidence of free air. There are degenerative changes of the spine and hip joints. IMPRESSION: New nasogastric tube that projects over the proximal stomach. Fluid-filled distended loops of small bowel with multiple air-fluid levels. Paucity of bowel gas in the large bowel. This does not appear appreciably changed compared to yesterday's CT scan.
--- NOTE | 2016-12-14 20:06 | NUR ---
PT BP 180/70, P 72. PT DENIES HEADACHE, DENIES CP, DENIES PAIN. RESTING COMFORTABLY IN BED. SURGICAL PA MADE AWARE. PER SURGICAL PA, RECHECK IN ONE HOUR. PRECAUTIONS MAINTAINED.
[2016-12-15 05:30] VITALS: BP 200/90
--- NOTE | 2016-12-15 05:53 | NUR ---
NURSING NOTE: PT BP 200/90 HR 74. PT DENYING HEADACHE, VISION CHANGES, CHEST PAIN, OR SOB. PER PT FEELS LIKE "NORMAL SEF". PA HARRIS AWARE. PER PA - ADMINISTER LISINOPRIL NOW. RN WILL RECHECK BP IN 1 HOUR.
--- NOTE | 2016-12-15 06:51 | NUR ---
LATE ENTRY NURSING NOTE: PT VOMITTED AFTER TAKING LISINOPRIL - DARK BROWN, BILE ODOR. PA HARRIS MADE AWARE. PER PA WILL PLACE ORDER TO VERIFY PLACEMENT OF NGT. PER PA - PLEASE BE SURE TO FLUSH NGT OUTPUT VERY THICK. PA INFORMED THIS RN HAS FLUSHED NGT TWICE IN 8H SHIFT. ZOFRAN ADMINISTERED. PT NOW RESTING COMFORTABLY IN BED.
[2016-12-15 07:45] VITALS: BP 180/100
--- NOTE | 2016-12-15 08:16 | PN- General Surgery ---
See Addendum Subjective Subjective: some abd discomfort, no severe pain. no n/v at this time, did vomit overnight. no flatus/bm. htn overnight to 200s- given lisinopril early, then vomited. no cp/sob. no oob since admission other than to bathroom Objective Vital Signs and I&Os Vital Signs Date Time Temp Pulse Resp B/P B/P Pulse O2 O2 Flow FiO2 Mean Ox Delivery Rate 12/15 0558 74 200/90 12/15 0530 98.0 74 16 200/90 95 Room Air 12/14 2358 97.6 69 20 150/80 96 Room Air 12/14 2122 160/80 12/14 1958 98.0 72 20 180/70 96 Room Air 12/14 1625 98.1 73 20 132/74 95 Room Air 12/14 1400 97.5 67 20 130/80 95 Room Air 12/14 1136 98.2 65 20 140/80 96 Room Air 12/14 1055 98.5 68 20 152/70 12/14 0934 Room Air Room Air BP taken now: 190/82 Intake & Output 12/15 1600 12/15 0800 12/15 0000 12/14 1600 12/14 0800 12/14 0000 Intake Total 800 400 094 691 9443 Output Total 800 125 150 600 200 Balance 0 275 970 729 2201 Intake, IV 800 400 882 195 2098 Intake, Oral 0 0 60 Intake, Other 300 Number 0 Bowel Movements Output, 400 100 600 200 Gastric Drainage Output, Urine 400 125 50 Patient 108 lb 110 lb Weight Weight Estimated Measurement Method NGT: irrigated, 50cc in and 50cc out. 400 out overnight, but after irrigation- ?unsure amount put in by rn Physical Exam: GEN: NAD CARD: s1s2 RRR PULM: CTAB ABD: dist, soft, minimally ttp thoughout, quiet bs with ngt clamped EXT: calves soft nt bl Assessment/Plan Assessment/Plan A: 86F w SBO, continued abscence of bowel fxn, uncontrolled htn. P: -lisinopril now. medicine consult for HTN mgmt. May need IV meds, tele transfer - cont NGT, irrigate q shift or more often as needed. AXR to check placement. - NPO, IVF - needs OOB/ambulation, RN aware - will dw attending Core Measures/Miscellaneous Venous Thromboembolism VTE Risk Factors: Age > 40 VTE Contraindications: No Contraindications VTE Diagnosis: No VTE Type: NONE VTE Confirmed by (Test): NONE Beta Kim Is Beta Kim a Home Med? No Antibiotics Is Patient on Antibiotics? No
[2016-12-15 08:22] VITALS: BP 150/60
--- NOTE | 2016-12-15 08:52 | NUR ---
PATIENT B/P 0745 180/100 WICHO ABEBE LIDDER WITH SURGERY AWARE, [facility] PA TO SEE PATIENT AND ADDRESS, CURRENTLY WIHT SOFT DISTENDED BOWEL, HYPOACTIVE BOWELS HEARD ONLY IN LEFT UPPER QUADRANT. NO PAIN NOTED, NGT MAINTAINED TO [facility]
[2016-12-15 10:30] VITALS: BP 160/80
--- NOTE | 2016-12-15 10:30 | NUR ---
gave extra dose of lisinopril b/p at that time 180/100, patient ngt clamped, also down for xray at that time, ngt hooked back up to clws after 1 hour, b/p down to 160/80 at that time. safety maintained, needs in reach.
[2016-12-15 10:59] LABS: ABSOLUTE BASOPHIL COUNT 0 /CUMM (0.0-0.2); ABSOLUTE EOSINOPHIL COUNT 0 /CUMM (0.0-0.7); ABSOLUTE GRANULOCYTE CT 6.3 /CUMM (1.4-6.5); ABSOLUTE LYMPH COUNT 1.1 /CUMM (1.2-3.4); ABSOLUTE MONOCYTE COUNT 1.2 /CUMM (0.10-0.60); BASOPHIL % 0.2 % (0.0-2.0); EOSINOPHIL % 0.1 % (0-5); GRANULOCYTE % 72.6 % (42.2-75.2); HEMATOCRIT 41.5 % (37-47); MEAN CORPUSCULAR HGB 31.3 PG (27.0-31.0); MEAN CORPUSCULAR HGB CONC 32.4 G/DL (33.0-37.0); MEAN CORPUSCULAR VOLUME 96.6 FL (81.0-99.0); MEAN PLATELET VOLUME 8.5 FL (7.4-10.4); PLATELET COUNT 311 /CUMM (130-400); RBC DISTRIBUTION WIDTH 14.1 % (11.5-14.5); RED BLOOD CELL CT 4.29 /CUMM (4.20-5.40); WHITE BLOOD CELL COUNT 8.6 /CUMM (4.8-10.8)
--- NOTE | 2016-12-15 11:31 | RADIOLOGY REPORT ---
EXAMINATION: XR ABDOMEN MULTIPLE VIEWS CLINICAL INDICATION: Vomiting. Nasogastric tube. Presumptive diagnosis of small bowel obstruction. COMPARISON: Two-view abdomen dated 12/14/2016. TECHNIQUE: 2 views of the abdomen. FINDINGS: An enteric tube is in place with side hole located above the level of the diaphragm and tip seen just at the GE junction. Normal bowel gas pattern is seen with no abnormal distention of small or large bowel loops seen. No significant air-fluid levels are seen on upright view. No free air under the diaphragm is seen. There is a mild convex left lumbar scoliosis with moderate degenerative changes in the lower lumbar spine. Mild degenerative changes seen in the hip joints and sacroiliac joints. Sacrum is obscured by overlying bowel gas. Osteopenia is present. IMPRESSION: 1. High positioning of the enteric tube with sidehole located above the level of the diaphragm. 2. No evidence of small bowel obstruction or perforation. 3. Osteopenia with degenerative changes in the lumbar spine, SI joints and hips.
[2016-12-15 14:09] VITALS: BP 140/90
--- NOTE | 2016-12-15 20:17 | PN- General Surgery ---
Subjective Subjective: NGT with low output. no bowel fxn. Tip of NGT at GE junction on AXR. Advanced with 100cc yellow thick output. Flushed and fixed to patient. Tolerated well. Continue on low wall suction. Objective Vital Signs and I&Os Vital Signs Date Time Temp Pulse Resp B/P B/P Pulse O2 O2 Flow FiO2 Mean Ox Delivery Rate 12/15 1945 95 Room Air 12/15 1409 98.2 96 140/90 12/15 1209 95 Room Air 12/15 1055 Room Air Room Air 12/15 1030 160/80 12/15 0930 77 180/100 12/15 0822 98.6 63 20 150/60 94 Room Air 12/15 0745 180/100 12/15 0558 74 200/90 12/15 0530 98.0 74 16 200/90 95 Room Air 12/14 2358 97.6 69 20 150/80 96 Room Air 12/14 2122 160/80 Intake & Output 12/15 1600 12/15 0800 12/15 0000 12/14 1600 12/14 0800 12/14 0000 Intake Total 300 800 400 035 291 1722 Output Total 150 800 125 150 600 200 Balance 150 0 275 744 198 9700 Intake, IV 300 800 400 461 082 4779 Intake, Oral 0 0 0 60 Intake, Other 300 Number 0 Bowel Movements Output, 150 400 100 600 200 Gastric Drainage Output, Urine 400 125 50 Patient 108 lb 108 lb 110 lb Weight Weight Estimated Measurement Method Assessment/Plan Assessment/Plan AP Core Measures/Miscellaneous Venous Thromboembolism VTE Risk Factors: Age > 40 VTE Contraindications: No Contraindications VTE Diagnosis: No VTE Type: NONE VTE Confirmed by (Test): NONE Beta Kim Is Beta Kim a Home Med? No Antibiotics Is Patient on Antibiotics? No
[2016-12-15 21:52] VITALS: BP 150/86
[2016-12-16 06:00] VITALS: BP 140/84
[2016-12-16 09:23] LABS: ABSOLUTE BASOPHIL COUNT 0 /CUMM (0.0-0.2); ABSOLUTE EOSINOPHIL COUNT 0 /CUMM (0.0-0.7); ABSOLUTE GRANULOCYTE CT 5.4 /CUMM (1.4-6.5); ABSOLUTE LYMPH COUNT 0.5 /CUMM (1.2-3.4); ABSOLUTE MONOCYTE COUNT 1.4 /CUMM (0.10-0.60); BASOPHIL % 0 % (0.0-2.0); EOSINOPHIL % 0.2 % (0-5); GRANULOCYTE % 73.8 % (42.2-75.2); HEMATOCRIT 39.7 % (37-47); MEAN CORPUSCULAR HGB 31.4 PG (27.0-31.0); MEAN CORPUSCULAR HGB CONC 32.8 G/DL (33.0-37.0); MEAN CORPUSCULAR VOLUME 95.6 FL (81.0-99.0); MEAN PLATELET VOLUME 8.4 FL (7.4-10.4); PLATELET COUNT 292 /CUMM (130-400); RBC DISTRIBUTION WIDTH 13.5 % (11.5-14.5); RED BLOOD CELL CT 4.15 /CUMM (4.20-5.40); WHITE BLOOD CELL COUNT 7.3 /CUMM (4.8-10.8)
--- NOTE | 2016-12-16 10:32 | PN- General Surgery ---
See Addendum Subjective Subjective: Appears ng tube is draining better since advanced. No flatus or bm. Denies pain. Objective Vital Signs and I&Os Vital Signs Date Time Temp Pulse Resp B/P B/P Pulse O2 O2 Flow FiO2 Mean Ox Delivery Rate 12/16 0829 95 Room Air 12/16 0826 78 142/84 12/16 0600 98.8 67 18 140/84 94 Room Air 12/15 2152 97.6 69 20 150/86 94 12/15 1945 95 Room Air 12/15 1409 98.2 96 140/90 12/15 1209 95 Room Air 12/15 1055 Room Air Room Air Intake & Output 12/16 1600 12/16 0812/16 0000 12/15 1600 12/15 0812/15 0000 Intake Total 400 350 300 800 400 Output Total 400 550 550 150 800 125 Balance -400 -150 -200 150 0 275 Intake, IV 400 350 300 800 400 Intake, Oral 0 0 0 0 0 Output, 350 250 150 400 Gastric Drainage Output, Urine 400 200 300 400 125 Patient 108 lb Weight Physical Exam: General - alert & oriented. comfortable. no acute distress. Lungs - clear bilaterally. no w/r/r. Cardiac - s1s2. reg. Abdomen - softly distended. ng tube with brownish colored drainaged. mild generalized tenderness but no acute findings. Extremities - warm bilaterally. no c/c/e. Current Medications: Current Medications Sig/Amie Start time Last Medication Dose Route Stop Time Status Admin Acetaminophen 1,000 MG Q6P PRN 12/13 2229 AC IV Aspirin 81 MG DAILY 12/14 1000 12/16 PO 0827 Atorvastatin Calcium 20 MG 1700 12/14 1700 AC 12/15 PO 1620 Citalopram 10 MG DAILY 12/14 1000 AC 12/16 Hydrobromide PO 0826 Donepezil HCl 10 MG DAILY 12/14 1000 AC 12/16 PO 0826 Famotidine 20 MG 1000 12/14 1000 AC 12/16 IV 0826 Heparin Sodium 5,000 UNIT Q8 12/14 0600 AC 12/16 (Porcine) SC 0553 Lisinopril 20 MG DAILY 12/14 1000 AC 12/16 PO 0826 Morphine Sulfate 2 MG Q2P PRN 12/13 2229 AC IV Morphine Sulfate 4 MG Q2P PRN 12/13 2229 AC IV Multivitamins 1 TAB DAILY 12/14 1000 AC 12/16 PO 0826 Ondansetron HCl 4 MG Q6P PRN 12/13 2300 AC 12/15 IV 0614 Potassium Chloride 20 MEQ Q10H 12/14 0930 AC 12/15 Dextrose/Sodium 1,000 ML IV 1621 Chloride Promethazine HCl 12.5 MG Q6P PRN 12/13 2230 AC IV 12/20 2229 Results Last 48 Hours of Labs: Laboratory Tests 12/16 12/15 0628 0625 Chemistry Sodium (137 - 145 mmol/L) 141 141 Potassium (3.5 - 5.1 mmol/L) 4.0 4.1 Chloride (98 - 107 mmol/L) 106 107 Carbon Dioxide (22 - 30 mmol/L) 25 25 Anion Gap (5 - 16) 9 10 BUN (7 - 17 mg/dL) 20 H 20 H Creatinine (0.5 - 1.0 mg/dL) 0.6 0.6 Estimated GFR (>60 ml/min) > 60 > 60 BUN/Creatinine Ratio (7 - 25 %) 33.3 H 33.3 H Magnesium (1.6 - 2.3 mg/dL) 2.0 Hematology CBC w Diff NO MAN DIFF REQ NO MAN DIFF REQ WBC (4.8 - 10.8 /CUMM) 7.3 8.6 RBC (4.20 - 5.40 /CUMM) 4.15 L 4.29 Hgb (12.0 - 16.0 G/DL) 13.0 13.4 Hct (37 - 47 %) 39.7 41.5 MCV (81.0 - 99.0 FL) 95.6 96.6 MCH (27.0 - 31.0 PG) 31.4 H 31.3 H RDW (11.5 - 14.5 %) 13.5 14.1 Plt Count (130 - 400 /CUMM) 292 311 MPV (7.4 - 10.4 FL) 8.4 8.5 Gran % (42.2 - 75.2 %) 73.8 72.6 Lymphocytes % (20.5 - 51.1 %) 6.9 L 13.3 L Monocytes % (1.7 - 9.3 %) 19.1 H 13.8 H Eosinophils % (0 - 5 %) 0.2 0.1 Basophils % (0.0 - 2.0 %) 0 L 0.2 Absolute Granulocytes (1.4 - 6.5 /CUMM) 5.4 6.3 Absolute Lymphocytes (1.2 - 3.4 /CUMM) 0.5 L 1.1 L Absolute Monocytes (0.10 - 0.60 /CUMM) 1.4 H 1.2 H Absolute Eosinophils (0.0 - 0.7 /CUMM) 0 0 Absolute Basophils (0.0 - 0.2 /CUMM) 0 0 PUBS MCHC (33.0 - 37.0 G/DL) 32.8 L 32.4 L Assessment/Plan Assessment/Plan This 86 year old female with hx dementia, htn, hld, gerd, with ongoing sbo - with somewhat improved output with advancing ng tube yesterday afternoon continue npo / ngt / ivf oob with PT - recommending continue home PT when discharged f/u labs continue lisinopril for htn hep sc - dvt ppx pepcid iv - gi ppx f/u xray? will d/w Core Measures/Miscellaneous Venous Thromboembolism VTE Risk Factors: Age > 40 VTE Contraindications: No Contraindications VTE Diagnosis: No VTE Type: NONE VTE Confirmed by (Test): NONE Beta Kim Is Beta Kim a Home Med? No Antibiotics Is Patient on Antibiotics? No
[2016-12-16 13:46] VITALS: BP 120/70
--- NOTE | 2016-12-16 18:06 | NUR ---
PT NGT OUTPUT 450ML FROM [id number]. DR JACINTO NOTIFIED.
[2016-12-16 19:09] VITALS: BP 106/66
[2016-12-16 21:56] VITALS: BP 150/60
[2016-12-17 05:30] LABS: ABSOLUTE BASOPHIL COUNT 0 /CUMM (0.0-0.2); ABSOLUTE EOSINOPHIL COUNT 0 /CUMM (0.0-0.7); ABSOLUTE GRANULOCYTE CT 4.3 /CUMM (1.4-6.5); ABSOLUTE LYMPH COUNT 0.4 /CUMM (1.2-3.4); ABSOLUTE MONOCYTE COUNT 1.2 /CUMM (0.10-0.60); BASOPHIL % 0.1 % (0.0-2.0); EOSINOPHIL % 0.3 % (0-5); HEMATOCRIT 39.8 % (37-47); MEAN CORPUSCULAR HGB 31.3 PG (27.0-31.0); MEAN CORPUSCULAR HGB CONC 33.1 G/DL (33.0-37.0); MEAN CORPUSCULAR VOLUME 94.7 FL (81.0-99.0); MEAN PLATELET VOLUME 7.8 FL (7.4-10.4); PLATELET COUNT 300 /CUMM (130-400); RBC DISTRIBUTION WIDTH 13.7 % (11.5-14.5); WHITE BLOOD CELL COUNT 5.9 /CUMM (4.8-10.8)
[2016-12-17 05:38] LABS: PT 12.6 SEC (9.4-12.5)
[2016-12-17 06:00] VITALS: BP 138/76
--- NOTE | 2016-12-17 07:26 | PN- General Surgery ---
Subjective Subjective: no complaints. no pain. feels no worse, no better. limited OOB. no flatus/ bm. no n/v. Objective Vital Signs and I&Os Vital Signs Date Time Temp Pulse Resp B/P B/P Pulse O2 O2 Flow FiO2 Mean Ox Delivery Rate 12/17 0600 98.3 63 18 138/76 95 Room Air 12/16 2156 98.3 69 20 150/60 97 12/16 1852 96 Room Air 12/16 1346 97.7 68 18 120/70 96 Room Air 12/16 0829 95 Room Air 12/16 0826 78 142/84 Intake & Output 12/17 0800 12/17 0000 12/16 1600 12/16 0800 12/16 0000 12/15 1600 Intake Total 470 400 350 300 Output Total 1000 1750 550 550 150 Balance -1000 -1280 -150 -200 150 Intake, IV 350 400 350 300 Intake, Oral 120 0 0 0 Output, 650 1050 350 250 150 Gastric Drainage Output, Urine 350 700 200 300 Patient 108 lb Weight NGT: 650 out overnight Physical Exam: GEN- NAD CARD- S1S2 RRR PULM- CTAB ABD- soft, dist, tympanic, +bs with NGT clamped, nontender EXT- calves soft nt bl, ALPS on Results Last 48 Hours of Labs: Laboratory Tests 12/17 12/16 0510 0628 Chemistry Sodium (137 - 145 mmol/L) 144 141 Potassium (3.5 - 5.1 mmol/L) 3.6 4.0 Chloride (98 - 107 mmol/L) 105 106 Carbon Dioxide (22 - 30 mmol/L) 29 25 Anion Gap (5 - 16) 9 9 BUN (7 - 17 mg/dL) 29 H 20 H Creatinine (0.5 - 1.0 mg/dL) 0.7 0.6 Estimated GFR (>60 ml/min) > 60 > 60 BUN/Creatinine Ratio (7 - 25 %) 41.4 H 33.3 H Coagulation PT (9.4 - 12.5 SEC) 12.6 H INR (0.90 - 1.19) 1.20 H Hematology CBC w Diff MAN DIFF ORDERED NO MAN DIFF REQ WBC (4.8 - 10.8 /CUMM) 5.9 7.3 RBC (4.20 - 5.40 /CUMM) 4.20 4.15 L Hgb (12.0 - 16.0 G/DL) 13.2 13.0 Hct (37 - 47 %) 39.8 39.7 MCV (81.0 - 99.0 FL) 94.7 95.6 MCH (27.0 - 31.0 PG) 31.3 H 31.4 H RDW (11.5 - 14.5 %) 13.7 13.5 Plt Count (130 - 400 /CUMM) 300 292 MPV (7.4 - 10.4 FL) 7.8 8.4 Gran % (42.2 - 75.2 %) 72.0 73.8 Lymphocytes % (20.5 - 51.1 %) 7.4 L 6.9 L Monocytes % (1.7 - 9.3 %) 20.2 H 19.1 H Eosinophils % (0 - 5 %) 0.3 0.2 Basophils % (0.0 - 2.0 %) 0.1 0 L Absolute Granulocytes (1.4 - 6.5 /CUMM) 4.3 5.4 Segmented Neutrophils (42.2 - 75.2 %) 66 Band Neutrophils (0.0 - 5.0 %) 8 H Absolute Lymphocytes (1.2 - 3.4 /CUMM) 0.4 L 0.5 L Lymphocytes (20.5 - 51.1 %) 8 L Monocytes (1.7 - 9.3 %) 15 H Absolute Monocytes (0.10 - 0.60 /CUMM) 1.2 H 1.4 H Eosinophils (0 - 5.0 %) 2 Absolute Eosinophils (0.0 - 0.7 /CUMM) 0 0 Absolute Basophils (0.0 - 0.2 /CUMM) 0 0 Metamyelocytes (0.0 - 1.0 %) 1 Platelet Estimate (ADEQUATE) ADEQUATE Polychromasia 1+ Poikilocytosis 1+ Ovalocytes 1+ Stomatocytes FEW PUBS MCHC (33.0 - 37.0 G/DL) 33.1 32.8 L Other Body Source Fld Total RBCs Counted (%) 100 Recent Imaging Studies: AXR pdg this am Assessment/Plan Assessment/Plan A- 86F SBO, no bowel fxn, stable. P- -AXR pdg -NPO, IVF w K at 75, NGT, I&Os -OOB, ambulate - ?OR later today - will gosia TELLO Core Measures/Miscellaneous Venous Thromboembolism VTE Risk Factors: Age > 40 VTE Contraindications: No Contraindications VTE Diagnosis: No VTE Type: NONE VTE Confirmed by (Test): NONE Beta Kim Is Beta Kim a Home Med? No Antibiotics Is Patient on Antibiotics? No
--- NOTE | 2016-12-17 07:49 | Admission Certification ---
Admission Certification Certification Statement - As attending physician, I certify that at the time of - admission, based on clinical presentation, severity of - symptoms, need for further diagnostic testing and - therapeutic interventions, and risk of adverse outcomes - without in-hospital treatment, in my clinical assessment, - this patient requires an acute hospital stay for a minimum - of two nights or longer. I have also considered psychsocial - factors such as support system, advanced age, financial - issues, cognitive issues, and failed out-patient treatments, - past re-admission history, safety of patient, and lack of - compliance as applicable. Specific rationale supporting this admission is: small bowel obstruction will require minimum 3 day stay and possible surgery
--- NOTE | 2016-12-17 09:34 | RADIOLOGY REPORT ---
EXAMINATION: XR ABDOMEN MULTIPLE VIEWS CLINICAL INDICATION: Abdominal distention. Ongoing small bowel obstruction. COMPARISON: Two-view abdomen dated 12/15/2016. TECHNIQUE: 2 views of the abdomen. FINDINGS: Enteric tube is seen coiled in the stomach with tip projected superiorly in the gastric fundus region. Multiple mildly distended loops of small bowel with air-fluid levels are seen in the abdomen, new from the prior exam. There is gas seen in the rectosigmoid and descending colon and findings may reflect a partial small bowel obstruction or ileus. No evidence of free air is seen. Mild convex left lumbar scoliosis, degenerative changes in the lower lumbar spine, and mild degenerative changes in the sacroiliac joints and hip joints again noted. IMPRESSION: Interval development of multiple air-fluid levels within mildly distended loops of small bowel. Findings are suspicious for partial small bowel obstruction or ileus. Clinical correlation requested.
--- NOTE | 2016-12-17 10:53 | RADIOLOGY REPORT ---
EXAMINATION:\H\ \N\XR CHEST CLINICAL INFORMATION: Preoperative small bowel obstruction. COMPARISON: Abdominal x-ray 12/17/2016. Chest x-ray 05/24/2008. TECHNIQUE: A frontal view of the chest was obtained. FINDINGS: There is an enteric tube coiled in the stomach which has a similar configuration compared to the prior study, with the tip projected superiorly and toward the left. There is elevation of the right hemidiaphragm, noted on the most recent abdominal x-ray, but not present on prior imaging. Opacities at the right base are most consistent with atelectasis. The lung ro are otherwise clear. The cardiac silhouette is normal. The aortic arch is slightly unfolded. There is trace right pleural effusion. The central pulmonary vasculature appears normal. There are no acute osseous findings. A safety pin is noted projected over the right hemithorax. IMPRESSION: 1. Opacities at the right base are consistent with atelectasis. 2. There may be a small right pleural effusion. 3. There is now elevation of the right hemidiaphragm.
--- NOTE | 2016-12-17 15:43 | Operative Report ---
Operative/Inv Procedure Report Surgery Date: 12/17/16 Name of Procedure: Laparoscopic lysis of adhesions Pre-Operative Diagnosis: intestinal obstruction Post-Operative Diagnosis: same Estimated Blood Loss: scant Surgeon/Capacity Planning Manager: TAMIR TELLO,ROBERT Tiwari/Fide BUENO Anesthesia: general endotracheal tube Operative Indication: Patient with unresolved intestinal obstruction after 4 days of medical management of presumed adhesive disease. Operative/Procedure Note Note: After informed consent she was brought to the operating room and laid supine. Gen. anesthesia was obtained and her abdomen was prepped and draped. The skin above the umbilicus was after local anesthesia and incision made sharply. We came down the fascia and grasped with Dane's. Fasciotomies crated sharply and stay sutures placed. A blunt So port was placed. Pneumoperitoneum was achieved. 2, 5 mm ports were placed in suprapubic region and left lower quadrant after local anesthesia was instilled under direct vision the camera. The abdomen was explored. There were numerous dilated loops of small bowel. We focused our efforts on the right lower quadrant. We could not identify the terminal ileum however we could see decompressed bowel loops. We found a very thick fibrous band that appeared to be part of the obstructive process. It was incised with cautery. It appeared that the bowel obstruction was partially resolved after this move. But there were dense adhesions of multiple interloop areas of the terminal ileum. In order to get better visualization we swapped out the camera for a 30 scope. I also placed a third 5 mm port in the left upper quadrant. This allowed my psychiatric nursing assistant to help retract small bowel such that could see the interloop adhesions. These were lysed sharply. Once this was completed we could run the small bowel from the terminal ileum to the area of bowel obstruction. All the adhesions had been adequately lysed. There were a couple areas of dusky small bowel that appeared to be perfusing better after lysis of adhesion. The perineal cavity isn't suction irrigated normal saline. The ports removed and the gas allowed to escape. The fascia was closed 0 Vicryl suture. Skin incisions closed with 4-0 Vicryl. Steri-Strips and sterile dressing applied. Sponge and needle counts are correct CC: SHONNA TELLO,NARGIS Hdz
[2016-12-17 17:40] VITALS: BP 150/72
--- NOTE | 2016-12-17 20:13 | PN- General Surgery ---
Subjective Subjective: POSTOP CHECK "I feel much better". no pain, no flatus, no bm, no nausea, no vomiting. no OOB postop. Objective Vital Signs and I&Os Vital Signs Date Time Temp Pulse Resp B/P B/P Pulse O2 O2 Flow FiO2 Mean Ox Delivery Rate 12/17 174 95 Nasal 2.0L Cannula 12/17 174 97.5 79 20 150/72 95 Nasal 2.0L Cannula 12/17 1127 63 160/68 12/17 0600 98.3 63 18 138/76 95 Room Air 12/17 0000 97 Room Air 12/16 2156 98.3 69 20 150/60 97 Intake & Output 12/17 1600 12/17 0800 12/17 0000 12/16 1600 12/16 0812/16 0000 Intake Total 570 400 470 400 350 Output Total 787 301 5770 1750 550 550 Balance -130 -200 -1000 -1280 -150 -200 Intake, IV 450 400 350 400 350 Intake, Oral 0 0 120 0 0 Intake, Other 120 Number 0 Bowel Movements Output, 100 Emesis Output, 300 459 194 8618 350 250 Gastric Drainage Output, Urine 300 350 700 200 300 Physical Exam: GEN: NAD CARD: S1S2 RRR PULM: CTAB ABD: soft. distended, tympanic, no bs, incisions CDI EXT: calves soft nt, ALPS on bl Assessment/Plan Assessment/Plan A: 86F POD#0 sp laparoscopic YARI for SBO, stable, improved postoperatively. P: - DVT ppx - NPO, NGT, IVF - prn pain meds - OOB, ambulate - am labs - will dw attending Core Measures/Miscellaneous Venous Thromboembolism VTE Risk Factors: Age > 40 VTE Contraindications: No Contraindications VTE Diagnosis: No VTE Type: NONE VTE Confirmed by (Test): NONE Beta Kim Is Beta Kim a Home Med? No Antibiotics Is Patient on Antibiotics? No
[2016-12-17 22:16] VITALS: BP 160/72
--- NOTE | 2016-12-17 22:32 | NUR ---
PATIENT ARRIVED TO FLOOR AT 1726 FROM PACU. PATIENT ALERT AND ORIENTED X 3 WITH SOME FORGETFULNESS. PERRY INTACT, PATENT AND DRAINING CLEAR MARIAA COLOR URINE. SKIN DRY AND INTACT. NGT TO LEFT NARE TO LOW WALL SUCTION. PATIENT DENIES PAIN. NO C/O NAUSEA. CALL LIGHT WITHIN REACH. FAMILY WAS IN TO VISIT. WILL CONTINUE TO MONITOR.
[2016-12-18 06:42] VITALS: BP 118/70
--- NOTE | 2016-12-18 07:09 | PN- Student ---
VANDA ESCOBAR 12/18/16 0658: Subjective Subjective: Pt is an 86 y/o female who is POD #1 of a laparoscopic lysis of adhesions on , who is doing well with no complaints of pain. She denies any N/V/D. Remains NPO. Has ambulated since surgery to the bathroom. -flatus. ROS Neuro: Denies any ARIZA. Respiratory: Denies any SOB. Cardiac: Denies any CP. GI: Denies any abdominal pain, mentions that feels constipated and has always been constipated. Objective Objective: Vital Signs Date Time Temp Pulse Resp B/P B/P Pulse O2 O2 Flow FiO2 Mean Ox Delivery Rate 12/18 0642 98.2 63 20 118/70 97 Nasal 2.0L Cannula 12/18 0000 Nasal 2.0L Cannula 12/17 2216 97.6 73 20 160/72 97 Nasal 2.0L Cannula 12/17 1740 95 Nasal 2.0L Cannula 12/17 1740 97.5 79 20 150/72 95 Nasal 2.0L Cannula 12/17 1127 63 160/68 General: Alert & oriented x3. Appropriate mood & affect. Respiratory: CABL. No wheezes, rhales, or ronchi. No accesorry muscle use. Cardiac: S1S2. Normal rate, regular rhythm. No murmurs, rubs, or gallops. No signs of edema. GI: Abdomen is mildly distended & nontender. + hypoactive BS heard in all 4 quadrants. Bandages are c/d/i. No erythema surrounding. Echymosis noted around abdomen from heparin injection sites that were present before surgery. MSK: Calves are soft, tontender. LE sensation in tact. Stocking compression devices are applied. Assessment/Plan Assessment: This is an 86 y/o female who is POD#1 of a laparoscopic lysis of adhesions causing a SBO, w/ significant PMHx of dementia, HTN, HLD, GERD, & hysterectomy, who is doing well with no complaints of pain post operatively. Plan: - Promote out ob bed ambulation & weight bear as tolerated. - Discuss removal of ha catheter. - Advance diet as tolerated. - Heparin SC & SCD's DVT prophylaxis. - Promote use of incentive spirometer. - Will discuss w/ Dr. Rodgers.
[2016-12-18 08:25] LABS: ABSOLUTE BASOPHIL COUNT 0 /CUMM (0.0-0.2); ABSOLUTE EOSINOPHIL COUNT 0 /CUMM (0.0-0.7); ABSOLUTE GRANULOCYTE CT 5.9 /CUMM (1.4-6.5); ABSOLUTE LYMPH COUNT 0.8 /CUMM (1.2-3.4); ABSOLUTE MONOCYTE COUNT 1.3 /CUMM (0.10-0.60); BASOPHIL % 0.1 % (0.0-2.0); EOSINOPHIL % 0.1 % (0-5); GRANULOCYTE % 73.8 % (42.2-75.2); MEAN CORPUSCULAR HGB 31.5 PG (27.0-31.0); MEAN CORPUSCULAR HGB CONC 32.8 G/DL (33.0-37.0); MEAN CORPUSCULAR VOLUME 96.1 FL (81.0-99.0); MEAN PLATELET VOLUME 8.4 FL (7.4-10.4); PLATELET COUNT 281 /CUMM (130-400); RBC DISTRIBUTION WIDTH 13.4 % (11.5-14.5)
[2016-12-18 08:46] LABS: HEMATOCRIT 33.6 % (37-47)
--- NOTE | 2016-12-18 10:23 | PN- General Surgery ---
See Addendum Subjective Subjective: Patient is comfortable, she feels well, she has no pain. NG tube is in place. No flatus, no bowel movement Objective Vital Signs and I&Os Vital Signs Date Time Temp Pulse Resp B/P B/P Pulse O2 O2 Flow FiO2 Mean Ox Delivery Rate 12/18 0642 98.2 63 20 118/70 97 Nasal 2.0L Cannula 12/18 0000 Nasal 2.0L Cannula 12/17 2216 97.6 73 20 160/72 97 Nasal 2.0L Cannula 12/17 1740 95 Nasal 2.0L Cannula 12/17 1740 97.5 79 20 150/72 95 Nasal 2.0L Cannula 12/17 1127 63 160/68 Intake & Output 12/18 1600 12/18 0800 12/18 0000 12/17 1600 12/17 0800 12/17 0000 Intake Total 650 525 570 400 Output Total 250 300 060 509 6238 Balance 400 225 -130 -200 -1000 Intake, IV 600 525 450 400 Intake, Oral 0 0 0 0 Intake, Other 50 120 Number 0 0 Bowel Movements Output, 100 Emesis Output, 50 0 300 600 650 Gastric Drainage Output, Urine 200 300 300 350 Physical Exam: Well-developed well-nourished no apparent distress. HEENT: Atraumatic, extraocular motion intact Neck: Supple, no lymphadenopathy Respiratory: No respiratory distress clear to auscultation bilateral. Heart: Regular rate and rhythm no murmur Abdomen: Softly distended, dressings clean dry and intact. Minimal tenderness. Minimal bowel sounds Extremities: No edema, no calf pain Neuro: Alert and oriented x3 Psych: Mood affect normal, normal memory normal judgment. Skin: Warm and dry, no rash on exposed skin Results Last 48 Hours of Labs: Laboratory Tests 12/18 12/17 0625 0510 Chemistry Sodium (137 - 145 mmol/L) 144 144 Potassium (3.5 - 5.1 mmol/L) 4.0 3.6 Chloride (98 - 107 mmol/L) 112 H 105 Carbon Dioxide (22 - 30 mmol/L) 23 29 Anion Gap (5 - 16) 9 9 BUN (7 - 17 mg/dL) 22 H 29 H Creatinine (0.5 - 1.0 mg/dL) 0.6 0.7 Estimated GFR (>60 ml/min) > 60 > 60 BUN/Creatinine Ratio (7 - 25 %) 36.7 H 41.4 H Magnesium (1.6 - 2.3 mg/dL) 2.1 Coagulation PT (9.4 - 12.5 SEC) 12.6 H INR (0.90 - 1.19) 1.20 H Hematology CBC w Diff NO MAN DIFF REQ MAN DIFF ORDERED WBC (4.8 - 10.8 /CUMM) 8.0 5.9 RBC (4.20 - 5.40 /CUMM) 3.50 L 4.20 Hgb (12.0 - 16.0 G/DL) 11.0 L 13.2 Hct (37 - 47 %) 33.6 L 39.8 MCV (81.0 - 99.0 FL) 96.1 94.7 MCH (27.0 - 31.0 PG) 31.5 H 31.3 H RDW (11.5 - 14.5 %) 13.4 13.7 Plt Count (130 - 400 /CUMM) 281 300 MPV (7.4 - 10.4 FL) 8.4 7.8 Gran % (42.2 - 75.2 %) 73.8 72.0 Lymphocytes % (20.5 - 51.1 %) 9.9 L 7.4 L Monocytes % (1.7 - 9.3 %) 16.1 H 20.2 H Eosinophils % (0 - 5 %) 0.1 0.3 Basophils % (0.0 - 2.0 %) 0.1 0.1 Absolute Granulocytes (1.4 - 6.5 /CUMM) 5.9 4.3 Segmented Neutrophils (42.2 - 75.2 %) 66 Band Neutrophils (0.0 - 5.0 %) 8 H Absolute Lymphocytes (1.2 - 3.4 /CUMM) 0.8 L 0.4 L Lymphocytes (20.5 - 51.1 %) 8 L Monocytes (1.7 - 9.3 %) 15 H Absolute Monocytes (0.10 - 0.60 /CUMM) 1.3 H 1.2 H Eosinophils (0 - 5.0 %) 2 Absolute Eosinophils (0.0 - 0.7 /CUMM) 0 0 Absolute Basophils (0.0 - 0.2 /CUMM) 0 0 Metamyelocytes (0.0 - 1.0 %) 1 Platelet Estimate (ADEQUATE) ADEQUATE Polychromasia 1+ Poikilocytosis 1+ Ovalocytes 1+ Stomatocytes FEW PUBS MCHC (33.0 - 37.0 G/DL) 32.8 L 33.1 Other Body Source Fld Total RBCs Counted (%) 100 Assessment/Plan Assessment/Plan Postop day #1 status post lysis of adhesions for small bowel instruction Continue NG tube, nothing by mouth Await bowel function Strict ins and outs Heparin subcutaneous for DVT prophylaxis Daily labs Elevated chloride, we'll switch to half normal saline Pain medication as needed Out of bed Core Measures/Miscellaneous Venous Thromboembolism VTE Risk Factors: Age > 40 VTE Contraindications: No Contraindications VTE Diagnosis: No VTE Type: NONE VTE Confirmed by (Test): NONE Beta Kim Is Beta Kim a Home Med? No Antibiotics Is Patient on Antibiotics? No
[2016-12-18 13:55] VITALS: BP 150/70
[2016-12-18 22:19] VITALS: BP 164/72
[2016-12-19 06:42] VITALS: BP 160/82
--- NOTE | 2016-12-19 07:42 | PN- General Surgery ---
See Addendum Subjective Subjective: POD #2 s/p laparoscopic lysis of adhesions for SBO. Resting comfortably in bed. Yet to pass flatus or have BM. NGT remains to low wall suction. No CP/SOB, N/ V, F/C. Objective Vital Signs and I&Os Vital Signs Date Time Temp Pulse Resp B/P B/P Pulse O2 O2 Flow FiO2 Mean Ox Delivery Rate 12/19 0642 97.9 57 20 160/82 96 Room Air 12/18 2219 98.3 56 20 164/72 95 Room Air 12/18 1355 98.4 65 20 150/70 98 Room Air 12/18 1021 98.2 63 20 118/70 12/18 0800 98 Nasal 2.0L Cannula Intake & Output 12/19 0812/19 0000 12/18 1600 12/18 0812/18 0000 12/17 1600 Intake Total 800 340 935 650 525 570 Output Total 320 600 675 250 300 700 Balance 480 -260 260 400 225 -130 Intake, IV 800 300 875 600 525 450 Intake, Oral 0 0 0 0 0 0 Intake, Other 40 50 120 Intake, Tube 60 Irrigant Number 0 0 Bowel Movements Output, 100 Emesis Output, 20 25 50 0 300 Gastric Drainage Output, Urine 300 600 650 200 300 300 Physical Exam: Gen: AAOx3 in NAD Cor: S1+S2+ Lungs: CTA fidel Abd: soft, NT, distended, hypoactive bowel sounds, incisional bandaids C/D/I. Small ecchymoses noted around abdomen from heparin injections. Ext: no edema or calf tenderness to fidel lower extremities. NGT: 25/ not documented/20 ml Current Medications: Current Medications Sig/Amie Start time Last Medication Dose Route Stop Time Status Admin Acetaminophen 1,000 MG Q6P PRN 12/13 2230 AC IV Aspirin 81 MG DAILY 12/14 1000 AC 12/18 PO 1021 Atorvastatin Calcium 20 MG 1700 12/14 1700 AC 12/18 PO 1740 Citalopram 10 MG DAILY 12/14 1000 AC 12/18 Hydrobromide PO 1021 Donepezil HCl 10 MG DAILY 12/14 1000 AC 12/18 PO 1021 Famotidine 20 MG 1000 12/14 1000 AC 12/18 IV 1021 Heparin Sodium 5,000 UNIT Q8 12/14 0600 AC 07/28 (Porcine) SC 0532 Lisinopril 20 MG DAILY 12/14 1000 AC 12/18 PO 1021 Morphine Sulfate 2 MG Q2P PRN 12/13 2229 AC IV Morphine Sulfate 4 MG Q2P PRN 12/13 2229 AC IV Multivitamins 1 TAB DAILY 12/14 1000 AC 12/18 PO 1021 Ondansetron HCl 4 MG Q6P PRN 12/13 2300 AC 12/15 IV 0614 Potassium Chloride 20 MEQ Q13H 12/18 1000 AC 12/19 Dextrose/Sodium 1,000 ML IV 0533 Chloride Potassium Chloride 20 MEQ Q10H 12/14 0930 DC 12/18 Dextrose/Sodium 1,000 ML IV 0535 Chloride Promethazine HCl 12.5 MG Q6P PRN 12/13 2229 AC IV 12/20 2228 Results Last 48 Hours of Labs: Laboratory Tests 12/19 12/18 0625 0625 Chemistry Sodium (137 - 145 mmol/L) Pending 144 Potassium (3.5 - 5.1 mmol/L) Pending 4.0 Chloride (98 - 107 mmol/L) Pending 112 H Carbon Dioxide (22 - 30 mmol/L) Pending 23 Anion Gap (5 - 16) Pending 9 BUN (7 - 17 mg/dL) Pending 22 H Creatinine (0.5 - 1.0 mg/dL) Pending 0.6 Estimated GFR (>60 ml/min) > 60 BUN/Creatinine Ratio (7 - 25 %) Pending 36.7 H Magnesium (1.6 - 2.3 mg/dL) 2.1 Hematology CBC w Diff NO MAN DIFF REQ WBC (4.8 - 10.8 /CUMM) 8.0 RBC (4.20 - 5.40 /CUMM) 3.50 L Hgb (12.0 - 16.0 G/DL) 11.0 L Hct (37 - 47 %) 33.6 L MCV (81.0 - 99.0 FL) 96.1 MCH (27.0 - 31.0 PG) 31.5 H RDW (11.5 - 14.5 %) 13.4 Plt Count (130 - 400 /CUMM) 281 MPV (7.4 - 10.4 FL) 8.4 Gran % (42.2 - 75.2 %) 73.8 Lymphocytes % (20.5 - 51.1 %) 9.9 L Monocytes % (1.7 - 9.3 %) 16.1 H Eosinophils % (0 - 5 %) 0.1 Basophils % (0.0 - 2.0 %) 0.1 Absolute Granulocytes (1.4 - 6.5 /CUMM) 5.9 Absolute Lymphocytes (1.2 - 3.4 /CUMM) 0.8 L Absolute Monocytes (0.10 - 0.60 /CUMM) 1.3 H Absolute Eosinophils (0.0 - 0.7 /CUMM) 0 Absolute Basophils (0.0 - 0.2 /CUMM) 0 PUBS MCHC (33.0 - 37.0 G/DL) 32.8 L Assessment/Plan Assessment/Plan A: POD #2 s/p lap YARI for SBO; AVSS. Yet to pass flatus or have BM. Plan: Await return of bowel function. Must get out of bed and ambulate TID. PT ordered for patient. Continue NGT for now. Consider removal later if less distended as output is low. F/U morning labwork. Core Measures/Miscellaneous Venous Thromboembolism VTE Risk Factors: Age > 40 VTE Contraindications: No Contraindications VTE Diagnosis: No VTE Type: NONE VTE Confirmed by (Test): NONE Beta Kim Is Beta Kim a Home Med? No Antibiotics Is Patient on Antibiotics? No
--- NOTE | 2016-12-19 11:20 | NUR ---
Physical Therapy: Pt observed standing at sink with nurse I. Nurse also reports she has been walking well with her. At this time acute skilled PT is no longer indicated. Encourage continued mobilization with nursing staff to prevent decondtioning. Thank you.
[2016-12-19 14:03] VITALS: BP 130/70
[2016-12-19 22:49] VITALS: BP 130/80
[2016-12-20 06:00] VITALS: BP 148/70
--- NOTE | 2016-12-20 09:16 | PN- General Surgery ---
See Addendum Subjective Subjective: No complaints. Denies flatus / bm. Not requiring pain medication. No dizziness. No shortness of breath. No chest pains. Objective Vital Signs and I&Os Vital Signs Date Time Temp Pulse Resp B/P B/P Pulse O2 O2 Flow FiO2 Mean Ox Delivery Rate 12/20 06 98.4 58 18 148/70 94 Room Air 12/19 2249 98.1 62 20 130/80 95 Room Air 12/19 1403 97.9 83 20 130/70 97 Room Air 12/19 0936 57 160/82 Intake & Output 12/20 1600 12/20 0800 12/20 0000 12/19 1600 12/19 0800 12/19 0000 Intake Total 830 810 800 800 340 Output Total 1000 50 1100 320 600 Balance -170 760 -300 480 -260 Intake, IV 800 750 800 800 300 Intake, Oral 0 0 0 0 Intake, Other 30 40 Intake, Tube 60 Irrigant Number 0 0 0 Bowel Movements Output, 250 50 20 Gastric Drainage Output, Urine 750 1100 300 600 Physical Exam: General - alert. comfortable. no acute distress. Lungs - clear bilaterally. no w/r/r. Cardiac - s1s2. reg. Abdomen - soft. bowel sounds appreciated. dressings c/d/i. ng tube with bilious drainage Extremities - warm bilaterally. no c/c/e. calves soft and nontender b/l. Current Medications: Current Medications Sig/Amie Start time Last Medication Dose Route Stop Time Status Admin Acetaminophen 1,000 MG Q6P PRN 12/13 2229 AC IV Aspirin 81 MG DAILY 12/14 1000 AC 12/19 PO 0936 Atorvastatin Calcium 20 MG 1700 12/14 1700 AC 12/19 PO 1831 Citalopram 10 MG DAILY 12/14 1000 AC 12/19 Hydrobromide PO 0936 Donepezil HCl 10 MG DAILY 12/14 1000 AC 12/19 PO 0936 Famotidine 20 MG 1000 12/14 1000 AC 12/19 IV 0937 Heparin Sodium 5,000 UNIT Q8 12/14 0600 AC 12/20 (Porcine) SC 0530 Lisinopril 20 MG DAILY 12/14 1000 AC 12/19 PO 0936 Morphine Sulfate 2 MG Q2P PRN 12/13 2229 AC IV Morphine Sulfate 4 MG Q2P PRN 12/13 2229 AC IV Multivitamins 1 TAB DAILY 12/14 1000 AC 12/19 PO 0937 Ondansetron HCl 4 MG Q6P PRN 12/13 2300 AC 12/15 IV 0614 Potassium Chloride 20 MEQ Q13H 12/18 1000 AC 12/20 Dextrose/Sodium 1,000 ML IV 0431 Chloride Promethazine HCl 12.5 MG Q6P PRN 12/13 2230 AC IV 12/20 2229 Results Last 48 Hours of Labs: Laboratory Tests 12/20 12/19 0730 0625 Chemistry Sodium (137 - 145 mmol/L) 136 L 136 L Potassium (3.5 - 5.1 mmol/L) 3.8 3.8 Chloride (98 - 107 mmol/L) 103 105 Carbon Dioxide (22 - 30 mmol/L) 26 24 Anion Gap (5 - 16) 7 7 BUN (7 - 17 mg/dL) 6 L 14 Creatinine (0.5 - 1.0 mg/dL) 0.6 0.7 Estimated GFR (>60 ml/min) > 60 > 60 BUN/Creatinine Ratio (7 - 25 %) 10.0 20.0 Magnesium (1.6 - 2.3 mg/dL) 1.8 Assessment/Plan Assessment/Plan This 86 year old female is POD #3 s/p lap YARI for SBO, awaiting return of bowel function currently npo / ivf / ngt not requiring narcotic pain medication oob with assistance f/u labs hep sc - dvt ppx pepcid iv - gi ppx will d/w (covering [facility]) Core Measures/Miscellaneous Venous Thromboembolism VTE Risk Factors: Age > 40 VTE Contraindications: No Contraindications VTE Diagnosis: No VTE Type: NONE VTE Confirmed by (Test): NONE Beta Kim Is Beta Kim a Home Med? No Antibiotics Is Patient on Antibiotics? No
[2016-12-20 09:55] LABS: ABSOLUTE BASOPHIL COUNT 0 /CUMM (0.0-0.2); ABSOLUTE EOSINOPHIL COUNT 0.3 /CUMM (0.0-0.7); ABSOLUTE GRANULOCYTE CT 10.4 /CUMM (1.4-6.5); ABSOLUTE LYMPH COUNT 1.7 /CUMM (1.2-3.4); ABSOLUTE MONOCYTE COUNT 1.3 /CUMM (0.10-0.60); BASOPHIL % 0.1 % (0.0-2.0); EOSINOPHIL % 2.1 % (0-5); MEAN CORPUSCULAR HGB 31.1 PG (27.0-31.0); MEAN CORPUSCULAR HGB CONC 32.7 G/DL (33.0-37.0); MEAN CORPUSCULAR VOLUME 94.9 FL (81.0-99.0); MEAN PLATELET VOLUME 7.6 FL (7.4-10.4); PLATELET COUNT 369 /CUMM (130-400); RED BLOOD CELL CT 4.28 /CUMM (4.20-5.40)
[2016-12-20 10:28] LABS: HEMATOCRIT 40.7 % (37-47); WHITE BLOOD CELL COUNT 13.7 /CUMM (4.8-10.8)
--- NOTE | 2016-12-20 12:33 | RADIOLOGY REPORT ---
EXAMINATION: XR PORTABLE CHEST CLINICAL INFORMATION: Postop leukocytosis COMPARISON: Chest 12/17/2016 TECHNIQUE: Portable frontal view of the chest was obtained. FINDINGS: Both lungs are expanded and clear. No pneumonic process seen. The heart size and pulmonary vascularity is normal. An enteric tube is noted with its tip in the stomach. No gross bony abnormality seen. IMPRESSION: No acute process seen in the chest on the present exam. No change in endotracheal tube from previous study 12/17/2016,
[2016-12-20 15:10] VITALS: BP 120/60
[2016-12-20 22:03] VITALS: BP 140/78
[2016-12-21 06:12] VITALS: BP 126/70
[2016-12-21 08:19] LABS: ABSOLUTE BASOPHIL COUNT 0.1 /CUMM (0.0-0.2); ABSOLUTE EOSINOPHIL COUNT 0.3 /CUMM (0.0-0.7); ABSOLUTE GRANULOCYTE CT 8.5 /CUMM (1.4-6.5); ABSOLUTE LYMPH COUNT 1.9 /CUMM (1.2-3.4); ABSOLUTE MONOCYTE COUNT 1.6 /CUMM (0.10-0.60); BASOPHIL % 0.4 % (0.0-2.0); EOSINOPHIL % 2.1 % (0-5); GRANULOCYTE % 69.2 % (42.2-75.2); MEAN CORPUSCULAR HGB 31.2 PG (27.0-31.0); MEAN CORPUSCULAR HGB CONC 32.5 G/DL (33.0-37.0); MEAN CORPUSCULAR VOLUME 95.9 FL (81.0-99.0); MEAN PLATELET VOLUME 7.8 FL (7.4-10.4); PLATELET COUNT 371 /CUMM (130-400); RBC DISTRIBUTION WIDTH 13.6 % (11.5-14.5); RED BLOOD CELL CT 3.96 /CUMM (4.20-5.40); WHITE BLOOD CELL COUNT 12.2 /CUMM (4.8-10.8)
--- NOTE | 2016-12-21 09:45 | PN- Student ---
SHAWN,VANDA 12/21/16 0930: Subjective Subjective: Pt is an 86 y/o female who is POD #4 of a laparoscopic YARI for SBO on 12/17 who is doing well with no complaints of pain. Denies N/V/dizziness. She denies that she has passed flatus or had a BM, but nursing staff states that she had 2 BM yesterday. She is tolerating a clear diet. +ambulation. ROS Neuro: Denies any ARIZA. Respiratory: Denies any SOB. Cardiac: Denies any CP. GI: Denies any bloating or constipation. Denies any abdominal pain. : States that she is voiding w/o difficulty, denies any urgency, burning, or iritation. Objective Objective: Vital Signs Date Time Temp Pulse Resp B/P B/P Pulse O2 O2 Flow FiO2 Mean Ox Delivery Rate 12/21 0612 97.0 52 16 126/70 96 12/20 2203 98.1 57 20 140/78 95 Room Air 12/20 1510 98.0 72 20 120/60 98 General: Alert & oriented. Some confusion about memory of bowel functions yesterday. Respiratory: CABL. No wheezes, rhales, or ronchi. No acessorry muscle use. No signs of distress on room air. Cardiac: S1S2. Normal rate, regular rhythm. No murmurs, rubs, or gallops. No signs of edema present. GI: Abdomen is mildy distended, nontender. + BS in all 4 quadrants. Moderate ecchymosis noted around abdomen from heparin SC injections. Incision site bandages are c/d/i with no surrounding erythema. No pain elicited from soft & deep palpation. MSK: Calf soft, nontender BL. Stocking compression devices applied. Assessment/Plan Assessment: This is an 86 y/o female who is POD #4 of a laparoscopic YARI from SBO w/ a PMHx significant for dementia, HTN, HLD, GERD, & hysterectomy who is doing well w/ no complaints of pain, nausea, or vomiting. Plan: - Continue pain regimen. - Continue bowel regimen. - Advance diet as tolerated. - Promote use of incentive spirometer. - Heparin SC & SCD's DVT prophylaxis. - Will discuss w/ attending. WIHCO TOMPKINS 12/21/16 1102: Addendum Addendum Agree with student assessment. Spoke with Dr. Bernardo, will advance to regular diet for lunch today.
[2016-12-21 14:31] VITALS: BP 110/66
--- NOTE | 2016-12-21 15:27 | PN- General Surgery ---
Surgical Brief Attending Note Brief Attending Note: Doing well, VSS afebrile, abd soft ND, WBC sl better, adv diet
[2016-12-21 22:07] VITALS: BP 140/60
[2016-12-22 06:47] VITALS: BP 150/74
--- NOTE | 2016-12-22 07:14 | Patient Discharge Instructions ---
Discharge Instructions General Discharge Information You were seen/treated for: small bowel obstruction You had these procedures: exploratory laparoscopy, lysis of adhesions Watch for these problems: fever>101, absence of bowel movements/passing gas, inability to tolerate food/ drink, worsening abdominal pain or bloating, nausea/vomiting, wound redness/ drainage Other wound care: Keep wounds clean and dry. You may shower, no tub baths/swimming. Watch for signs of wound infection. Diet Continue normal diet: Yes Activity Activity Self Limited: Yes Additional ACTIVITY Info: activity as tolerated Acute Coronary Syndrome Inclusion Criteria At DC or during hospital stay patient has or had the following: ACS DIAGNOSIS No Discharge Core Measures Meds if any: Prescribed or Continued at Discharge Meds if any: NOT Prescribed or Continued at Discharge Congestive Heart Failure Inclusion Criteria At DC or during hospital stay patient has or had the following: CHF DIAGNOSIS No Discharge Core Measures Meds if any: Prescribed or Continued at Discharge Meds if any: NOT Prescribed or Continued at Discharge Cerebrovascular accident Inclusion Criteria At DC or during hospital stay patient has or had the following: CVA/TIA Diagnosis No Discharge Core Measures Meds if any: Prescribed or Continued at Discharge Meds if any: NOT Prescribed or Continued at Discharge Venous thromboembolism Inclusion Criteria VTE Diagnosis No VTE Type NONE VTE Confirmed by (Test) NONE Discharge Core Measures - Per Current guidelines, there needs to be overlap - treatment for the first 5 days of Warfarin therapy. - If discharged on Warfarin prior to 5 days of - overlap therapy, the patient will need to be - assessed for post discharge needs including - *Post discharge parental anticoagulation - *Warfarin and/or parental anticoagulation education - *Follow up date to check INR post discharge At least 5 days overlap therapy as Inpatient No Meds if any: Prescribed or Continued at Discharge Note: Overlap Therapy is Warfarin and Anticoagulant Meds if any: NOT Prescribed or Continued at Discharge
--- NOTE | 2016-12-22 08:25 | PN- General Surgery ---
See Addendum Subjective Subjective: feeling much better, sitting up eating breakfast. no n/v. no cp/sob. denies flatus, denies bm (but bmx1 recorded?). no abd pain. some OOB to chair, in halls. +voids Objective Vital Signs and I&Os Vital Signs Date Time Temp Pulse Resp B/P B/P Pulse O2 O2 Flow FiO2 Mean Ox Delivery Rate 12/22 0647 97.6 60 16 150/74 97 Room Air 12/21 2207 97.9 61 20 140/60 95 Room Air 12/21 1431 97.4 62 20 110/66 96 12/21 1216 52 126/70 Intake & Output 12/22 1600 12/22 0800 12/22 0000 12/21 1600 12/21 0800 12/21 0000 Intake Total 120 120 800 100 50 Output Total 925 Balance 120 120 -125 100 50 Intake, IV 0 Intake, Oral 120 120 800 100 50 Number 1 Bowel Movements Output, Urine 925 Physical Exam: GEN: NAD CARD: S1S2 RRR PULM: CTAB ABD: distended, tympanic, nontender, steris- stained w dried blood, +eccymoses at incisions and lower abd (sq inj), +bs EXT: calves soft nt Assessment/Plan Assessment/Plan A: POD5 sp laparoscopic rizwan, stable, slow return of bowel fxn P: - DVT ppx - reg diet as tolerated - prn pain meds - OOB, ambulate - PT reeval postop for dc recs - dc planning - will dw attending Core Measures/Miscellaneous Venous Thromboembolism VTE Risk Factors: Age > 40 VTE Contraindications: No Contraindications VTE Diagnosis: No VTE Type: NONE VTE Confirmed by (Test): NONE Beta Kim Is Beta Kim a Home Med? No Antibiotics Is Patient on Antibiotics? No
[2016-12-22 09:21] VITALS: BP 1136/70
--- NOTE | 2016-12-22 13:01 | Surgical Discharge Summary ---
Visit Information Visit Dates Admission Date: 12/13/16 Discharge Date: 12/22/16 History of Present Illness Chief Complaint: abdominal pain. Medical History Blood Transfusion Hx: No Neurological: dementia EENT: TORRES MARTINEZ Cardiovascular: hypertension, hyperlipidemia Respiratory: NONE Gastrointestinal: GERD Hepatic: NONE Renal: NONE Musculoskeletal: osteoporosis Psychiatric: NONE Endocrine: NONE Cancer(s): breast cancer, SKIN History of MRSA: No History of VRE: No History of CDIFF: No Isolation History: Standard Surgical History Pertinent Surgical History: hysterectomy, laparoscopic lysis of adhesions Family History Relations & Conditions If Any: Relation not specified for: *No pertinent family history Psychosocial History Who Do You Live With? Spouse Services at Home: None What is Your Primary Language? Citizen Of [place] ETOH Use: denies use Review of Systems: not assessed at d/c Hospital Course Course Attending Physician: ROBERT GARNETT MD Primary Care Physician: NARGIS KILPATRICK MD Hospital Course: Admitted for intestinal obstruction. After four days of failed medical management, she was taken to the OR for laparoscopic lysis of adhesions. Post op her ileus resolved and she was started on a diet. She was discharged on POD5. Allergies: Coded Allergies: No Known Allergies (12/13/16) Significant Procedures: Laparoscoic lysis of adhesions Disposition Summary Disposition Principal Diagnosis: intestinal obstruction Additional Diagnosis: none Discharge Disposition: home or self care Discharge Instructions General Discharge Information Code Status: Full Code Patient's Diet: regular Patient's Activity: ad zeyad Follow-Up Instructions/Appts: two weeks Medications at Discharge Discharge Medications: Continue taking these medications: Citalopram Hydrobromide (Citalopram HBr) 20 MG TABLET 0.5 Tablet ORAL DAILY Qty = 30 Simvastatin (Simvastatin*) 40 MG TABLET 1 Tablet ORAL Every night Qty = 90 Pantoprazole Sodium (Pantoprazole Sodium) 40 MG TABLET.DR 1 Tablet ORAL DAILY Qty = 30 Lisinopril (Lisinopril) 20 MG TABLET 1 Tablet ORAL DAILY Qty = 90 Famotidine (Famotidine) 40 MG TABLET 1 Tablet ORAL As Directed Qty = 60 Donepezil HCl (Donepezil HCl) 10 MG TABLET 1 Tablet ORAL DAILY Qty = 30 Ibandronate Sodium (Boniva) 150 MG TABLET 1 Tablet ORAL ONCE A MONTH Qty = 1 Instructions: on the same date with a full glass of water at least 30 minutes before first food or drink of the day; remain in an upright posi Multivitamin (Multi-Day Vitamins) 1 EACH TABLET 1 Tablet ORAL DAILY Cinnamon Bark (Cinnamon) 500 MG CAPSULE 1,000 Milligram ORAL DAILY Aspirin (Ecotrin*) 81 MG TABLET. 162 Milligram ORAL DAILY Copies To: SHONNA TELLO,NARGIS Hdz
== END 2016-12-22 13:45 | disposition home health service (06) | DRG 337 ==
LOC: ERH 18:24 → ERHI 20:06 → 2NA 21:32 → CANRESERV 22:50 → ENRESERV 22:50 → 2NA 23:26 → ENTRNSPT 12-17 16:47 → CMPTRNSPT 12-17 17:37 → ENPENDDIS 12-22 13:05 → 2NA 12-22 13:45
PROVIDERS: Nurse Practitioner; Physician Assistant; Physician Assistant Surgical; ADMIT Surgery
PROC: 0DNB4ZZ Release Ileum, Percutaneous Endoscopic Approach (ICD-10-PCS; principal; 2016-12-17)
DX: K56.60 Unspecified intestinal obstruction (principal); E86.0 Dehydration; F03.90 Unspecified dementia, unspecified severity, without behavioral disturbance, psychotic disturbance, mood disturbance, and anxiety; I10 Essential (primary) hypertension; E78.5 Hyperlipidemia, unspecified; K21.9 Gastro-esophageal reflux disease without esophagitis; M81.0 Age-related osteoporosis without current pathological fracture; Z85.3 Personal history of malignant neoplasm of breast; Z85.828 Personal history of other malignant neoplasm of skin
CPT/HCPCS: 2NAP; 36415; 74020; 74177; 82436; 87086; 93005; 93010; 96360; 97116-GO; 97161-GP; 97164-GP; 97530-GO; C9399; J1644; J2405; J3490; J7042; S5012